=== PATIENT | male | born 1935 | race American Indian/Alaskan Native ===

== ENCOUNTER 2016-07-24 12:54 | Emergency (ER) | payer BC, MEDICARE ==
[2016-07-24 12:54] VITALS: BMI 25.0
[2016-07-24 14:14] LABS: BASO # 0.1 K/uL (0.0-0.2); EOS # 0.1 K/uL (0.0-0.7); EOS % 1.3 % (0.0-4.0); HEMATOCRIT 35.7 % (35.0-51.0); LYMPH # 1.8 K/uL (1.0-4.3); LYMPH % 23.6 % (20.0-40.0); MEAN CELL VOLUME 81.5 fL (80.0-94.0); MEAN CORPUSCULAR HEMOGLOBIN 26.5 pg (27.0-31.0); MEAN CORPUSCULAR HGB CONC 32.5 g/dL (33.0-37.0); MONO # 0.9 K/uL (0.0-0.8); RED CELL DISTRIBUTION WIDTH 17.8 % (11.5-14.5); WHITE BLOOD COUNT 7.7 K/uL (4.8-10.8)
[2016-07-24 15:08] LABS: RBC URINE 1 /hpf (0-3); URINE BILIRUBIN NEGATIVE (NEGATIVE); URINE BLOOD NEGATIVE (NEGATIVE); URINE COLOR Yellow (YELLOW); URINE GLUCOSE (UA) NORMAL (Normal); URINE KETONE NEGATIVE (NEGATIVE); URINE LEUKOCYTE ESTERASE NEG Leu/uL (Negative); URINE PROTEIN NEGATIVE (NEGATIVE); URINE UROBILINOGEN NORMAL mg/dL (0.2-1.0); WBC URINE 3 /hpf (0-5)
[2016-07-24 16:22] LABS: CHLORIDE 98 mmol/L (98-107); POTASSIUM 3.6 mmol/L (3.6-5.2); SODIUM 137 mmol/L (132-148)
[2016-07-24 16:24] LABS: ALB/GLOB RATIO 1.1 (1.0-2.1); AST/SGOT 28 U/L (17-59); BILIRUBIN,TOTAL 0.7 mg/dL (0.2-1.3); BLOOD UREA NITROGEN 23 mg/dL (9-20); CARBON DIOXIDE 26 mmol/L (22-30); GFR AFRICAN-AMERICAN > 60; TOTAL PROTEIN 6.5 g/dL (6.3-8.3)
[2016-07-24 16:25] LABS: ALKALINE PHOSPHATASE 62 U/L (38-126); ALT/SGPT 38 U/L (21-72); CALCIUM 8.7 mg/dl (8.6-10.4); GLUCOSE,RANDOM 82 mg/dL (75-110)
[2016-07-24] MEDS ORDERED: Iohexol 240 (50 ml) PO ONE (16:26)
[2016-07-24] MEDS ORDERED: Iohexol 240 (50 ml) ONE (16:28)
[2016-07-24] MEDS ORDERED: Iodixanol 320 MG/ML 100 ML BOTTLE IV ONE (17:41)
--- NOTE | 2016-07-24 18:37 | CT ---
PROCEDURE: CT Chest, Abdomen and Pelvis with intravenous contrast HISTORY: weight loss abd pain COMPARISON: CT abdomen/ pelvis 06/03/2016 TECHNIQUE: IV dose administered: 100 mL Visipaque 320 Radiation dose: Total exam DLP = 740.09 mGy-cm. FINDINGS: CT CHEST WITH CONTRAST: LUNGS: Clear. No nodule, mass or consolidation. MEDIASTINUM: Unremarkable. Normal caliber aorta and pulmonary arterial trunk. No aortic dissection. Normal size heart. LYMPH NODES: Unremarkable. PLEURA: Unremarkable. No pneumothorax. No pleural fluid. BONES: Unremarkable. OTHER FINDINGS: None. CT ABDOMEN AND PELVIS: LIVER: Unremarkable. No gross lesion or ductal dilatation. GALLBLADDER AND BILE DUCTS: Sludge noted. No evidence of calcified gallstones. No mural thickening. PANCREAS: Multiple fluid density pancreatic masses, likely cystic. In the pancreatic head, there are masses measuring 1.4 cm, 9 mm, a 2nd 9 mm mass, a bilobed mass measuring 1.0 x 1.9 cm. In the mid pancreatic body there are 2 fluid density masses will measuring 1.5 cm and 1.7 cm respectively. Distal to 1.7 cm mass there is pancreatic ductal dilatation of the distal body and tail. There is a more distal fluid density mass measuring 9 mm in the distal body/ tail junction. There is no proximal ductal dilatation. There is no peripancreatic fluid or infiltration. SPLEEN: Unremarkable. ADRENALS: Bilateral adrenal hypertrophy. KIDNEYS AND URETERS: Atrophic right kidney. 12 mm high attenuation exophytic mass in upper pole of right kidney, possibly hyperdense cyst. Recommend correlation with ultrasound. Low-density upper pole cyst, 10 mm. Exophytic 1.3 cm mass lower pole left kidney. This may also represent a hyperdense cyst. Again, correlation with ultrasound suggested. VASCULATURE: Unremarkable. No aortic aneurysm. BOWEL: Unremarkable. No obstruction. No gross mural thickening. APPENDIX: Normal appendix. PERITONEUM: No ascites. Incidentally noted fluid within the umbilicus. LYMPH NODES: Unremarkable. No enlarged lymph nodes. BLADDER: No mural thickening. REPRODUCTIVE: Enlarged prostate protruding into the bladder base. The prostate measures 6 cm transversely. BONES: No fracture. Grade 1 retrolisthesis at L2-3 with posterior osteophytes and central spinal canal stenosis. OTHER FINDINGS: None. IMPRESSION: Multiple fluid density pancreatic masses. Most likely these represent an IPMN's. There is mild dilatation of the pancreatic duct in the distal pancreatic body and tail. No evidence of pancreatitis. Bilateral high attenuation exophytic renal masses, possibly hyperdense cysts. Recommend correlation with renal ultrasound. Atrophic right kidney. Enlarged prostate. 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 No significant findings in the chest.
[2016-07-24 18:41] VITALS: PULSE 71; RESP 20; TEMP 99; O2SAT 97
[2016-07-24 19:01] VITALS: BP 165/100
--- NOTE | 2016-07-24 20:24 | C.PDOC ---
History Of Present Illness Patient presents to the emergency room with complaints of a poor appetite and weight loss for a few months. Patient notes occasional difficulty swallowing. Patient was seen by PMD and was in the ER earlier this month. Patient was referred to a GI and hasn't had any tests completed yet. Patient was told by his PMD to come to the ER for further evaluation. Patient denies any abdominal pain, chest pain, shortness of breath, fever, nausea, vomiting, diarrhea, or any other complaints. Time Seen by Provider: 07/24/16 13:46 Chief Complaint (Nursing): GI Problem History Per: Patient History/Exam Limitations: no limitations Onset/Duration Of Symptoms: Other (Few months) Current Symptoms Are (Timing): Still Present Context: Food Severity: Mild Radiation Of Pain To:: None Quality Of Discomfort: denies: "Pain" Associated Symptoms: Loss Of Appetite. denies: Fever, Nausea, Vomiting, Diarrhea Exacerbating Factors: None Alleviating Factors: None Recent travel outside of the [place]: No Past Medical History Reviewed: Historical Data, Nursing Documentation, Vital Signs Vital Signs: Last Vital Signs Temp 99.0 F 07/24/16 18:41 Pulse 71 07/24/16 18:41 Resp 20 07/24/16 18:41 BP 165/100 H 07/24/16 19:00 Pulse Ox 97 07/24/16 23:02 - Medical History PMH: Arthritis, HTN Denies: HIV, Chronic Kidney Disease, Seizures, Sexually Transmitted Disease Family History: States: Unknown Family Hx - Social History Hx Alcohol Use: No Hx Substance Use: No - Immunization History Hx Tetanus Toxoid Vaccination: No Hx Influenza Vaccination: No Hx Pneumococcal Vaccination: No Review Of Systems Constitutional: Positive for: Weight loss. Negative for: Fever ENT: Positive for: Other (Occasional difficulty swallowing) Cardiovascular: Negative for: Chest Pain Respiratory: Negative for: Shortness of Breath Gastrointestinal: Positive for: Other (Decreased appetite). Negative for: Nausea, Vomiting, Abdominal Pain, Diarrhea Physical Exam - Physical Exam Appears: Non-toxic Skin: Warm, Dry Head: Atraumatic, Normacephalic Throat: No Erythema, No Exudate Neck: Normal ROM, Supple Cardiovascular: Rhythm Regular Respiratory: Normal Breath Sounds, No Rales, No Rhonchi, No Wheezing Gastrointestinal/Abdominal: Soft, No Tenderness, No Guarding, No Rebound Extremity: Normal ROM, No Tenderness Neurological/Psych: Oriented x3, Normal Speech ED Course And Treatment - Laboratory Results Result Diagrams: 07/24/16 14:10 07/24/16 16:03 O2 Sat by Pulse Oximetry: 97 - CT Scan/US Chest CT Other Rad Studies (CT/US): Read By Radiologist, Radiology Report Reviewed CT/US Interpretation: Multiple fluid density pancreatic masses. Most likely these represent an IPMN's. There is mild dilatation of the pancreatic duct in the distal pancreatic body and tail. No evidence of pancreatitis. Bilateral high attenuation exophytic renal masses, possibly hyperdense cysts. Recommend correlation with renal ultrasound. Atrophic right kidney. Enlarged prostate. 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 No significant findings in the chest. Medical Decision Making Medical Decision Making: Plan: -- CT Chest -- Labs -- Omnipaque Progress Notes: Chest CT Impression: As read by Dr. Quinn Multiple fluid density pancreatic masses. Most likely these represent an IPMN' s. There is mild dilatation of the pancreatic duct in the distal pancreatic body and tail. No evidence of pancreatitis. Bilateral high attenuation exophytic renal masses, possibly hyperdense cysts. Recommend correlation with renal ultrasound. Atrophic right kidney. Enlarged prostate. 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 No significant findings in the chest. Case and results discussed with Dr. Davis, who agrees to follow up with patient in the office. Recommended Rx xanax for sleep Disposition - Disposition Referrals: Howard Davis MD [Staff Provider] - Disposition: HOME/ ROUTINE Disposition Time: 20:21 Condition: FAIR Additional Instructions: Follow up with dr Davis on wednesday at noon in the office Prescriptions: Alprazolam [Xanax] 1 tab PO HS PRN #7 tab PRN Reason: .sleep Forms: General Discharge Instructions - Clinical Impression Clinical Impression: Abdominal pain - Scribe Statement The provider has reviewed the documentation as recorded by the Scribcaitlin Pandey All medical record entries made by the Scribe were at my direction and personally dictated by me. I have reviewed the chart and agree that the record accurately reflects my personal performance of the history, physical exam, medical decision making, and the department course for this patient. I have also personally directed, reviewed, and agree with the discharge instructions and disposition.
== END 2016-07-24 20:00 | disposition home or self-care (01) ==
LOC: C.ER 12:54
DX: R10.9 Unspecified abdominal pain (principal); R63.4 Abnormal weight loss
CPT/HCPCS: 71260; 74177; 80053; 81001; 85025; 99284; Q9966; Q9967

== ENCOUNTER 2016-09-23 15:03 | Inpatient (IN) | payer MEDICARE ==
[2016-09-23 15:03] VITALS: BMI 25.0
[2016-09-23] MEDS ORDERED: Sodium Chloride 0.9% 500 ML IV ONE (15:22)
--- NOTE | 2016-09-23 15:32 | C.PDOC ---
History Of Present Illness 81 y/o male with PMHx of HTN and anxiety presents to ED with complaints of "feeling gassy" and abdominal pain since last night. Patient denies fever, chills, Shortness of breat N/V/D. No other complaints at this time. Time Seen by Provider: 09/23/16 15:17 Chief Complaint (Nursing): Abdominal Pain History Per: Patient History/Exam Limitations: no limitations Onset/Duration Of Symptoms: Days Current Symptoms Are (Timing): Still Present Past Medical History Reviewed: Historical Data, Nursing Documentation, Vital Signs Vital Signs: Last Vital Signs Temp 98.4 F 09/23/16 15:07 Pulse 79 09/23/16 17:03 Resp 16 09/23/16 17:03 BP 190/97 H 09/23/16 17:03 Pulse Ox 100 09/23/16 17:14 - Medical History PMH: Arthritis, HTN Family History: States: Unknown Family Hx - Social History Hx Alcohol Use: No Hx Substance Use: No - Immunization History Hx Tetanus Toxoid Vaccination: No Hx Influenza Vaccination: No Hx Pneumococcal Vaccination: No Review Of Systems Except As Marked, All Systems Reviewed And Found Negative. Constitutional: Negative for: Fever, Chills Respiratory: Negative for: Shortness of Breath Gastrointestinal: Positive for: Abdominal Pain. Negative for: Nausea, Vomiting , Diarrhea Neurological: Negative for: Headache, Dizziness Physical Exam - Physical Exam Appears: Non-toxic, No Acute Distress Skin: Normal Color, Warm Head: Atraumatic, Normacephalic Oral Mucosa: Moist Neck: Normal ROM Cardiovascular: Rhythm Regular Respiratory: Normal Breath Sounds, No Rales, No Rhonchi, No Wheezing Gastrointestinal/Abdominal: Soft, No Tenderness, No Guarding, No Rebound Extremity: Normal ROM Neurological/Psych: Oriented x3, Normal Speech, Normal Cognition Gait: Steady ED Course And Treatment - Laboratory Results Result Diagrams: 09/23/16 16:05 09/23/16 16:05 O2 Sat by Pulse Oximetry: 100 (Room air ) Pulse Ox Interpretation: Normal Medical Decision Making Medical Decision Making: r/o gastritis, pud, atypical cardiac- labs imaging pending 511: pt with elevated lipase, known pancreatic mass. case discussed with dr davis, requests admission, gi eval . ekg nsr [address] t wave changes Disposition - Disposition Disposition: HOSPITALIZED Disposition Time: 17:13 Condition: STABLE Additional Instructions: please follow up with your doctor. return to er with worsening symptoms or concerns. - Clinical Impression Clinical Impression: Pancreatitis - PA / RETORT UNLOADER / Resident Statement MD/DO has reviewed & agrees with the documentation as recorded. MD/DO has examined the patient and agrees with the treatment plan. - Scribe Statement The provider has reviewed the documentation as recorded by the Ana Barrios All medical record entries made by the Tuanibcaitlin were at my direction and personally dictated by me. I have reviewed the chart and agree that the record accurately reflects my personal performance of the history, physical exam, medical decision making, and the department course for this patient. I have also personally directed, reviewed, and agree with the discharge instructions and disposition. Decision To Admit - Pt Status Changed To: Hospital Disposition Of: Inpatient - Admit Certification Admit to Inpatient:: After my assessment, the patient will require hospitalization for at least two midnights. This is because of the severity of symptoms shown, intensity of services needed, and/or the medical risk in this patient being treated as an outpatient. - InPatient: Physician Admission Certification:: pt with pancreatitis, needs gi eval. - . Bed Request Type: Regular Admitting Physician: Howard Davis Patient Diagnosis: Pancreatitis
[2016-09-23] MEDS ORDERED: Sodium Chloride 0.9% 1,000 ML ONE (15:51)
[2016-09-23 16:12] LABS: BASO # 0.1 K/uL (0.0-0.2); BASO % 0.9 % (0.0-2.0); EOS % 0.4 % (0.0-4.0); HEMATOCRIT 34.4 % (35.0-51.0); LYMPH # 2.1 K/uL (1.0-4.3); LYMPH % 23.3 % (20.0-40.0); MEAN CORPUSCULAR HEMOGLOBIN 27.2 pg (27.0-31.0); MEAN CORPUSCULAR HGB CONC 32.4 g/dL (33.0-37.0); MEAN PLATELET VOLUME 7.8 fL (7.2-11.7); MONO # 0.7 K/uL (0.0-0.8); MONO % 7.9 % (0.0-10.0); WHITE BLOOD COUNT 8.8 K/uL (4.8-10.8)
[2016-09-23 16:22] LABS: CHLORIDE 101 mmol/L (98-107); POTASSIUM 4.6 mmol/L (3.6-5.2); SODIUM 137 mmol/L (132-148)
[2016-09-23 16:24] LABS: ALB/GLOB RATIO 1.3 (1.0-2.1); ALKALINE PHOSPHATASE 61 U/L (38-126); AST/SGOT 37 U/L (17-59); CARBON DIOXIDE 24 mmol/L (22-30); GFR AFRICAN-AMERICAN > 60; TOTAL PROTEIN 7.4 g/dL (6.3-8.3)
[2016-09-23 16:25] LABS: ALT/SGPT 20 U/L (21-72); BLOOD UREA NITROGEN 22 mg/dL (9-20); CALCIUM 8.6 mg/dl (8.6-10.4); GLUCOSE,RANDOM 85 mg/dL (75-110)
[2016-09-23 17:00] LABS: RBC URINE < 1 /hpf (0-3); URINE BILIRUBIN NEGATIVE (NEGATIVE); URINE BLOOD NEGATIVE (NEGATIVE); URINE COLOR Yellow (YELLOW); URINE GLUCOSE (UA) NORMAL (Normal); URINE KETONE NEGATIVE (NEGATIVE); URINE LEUKOCYTE ESTERASE NEG Leu/uL (Negative); URINE PROTEIN 1+ mg/dL (NEGATIVE); URINE UROBILINOGEN NORMAL mg/dL (0.2-1.0); WBC URINE 2 /hpf (0-5)
[2016-09-23] MEDS ORDERED: Aluminum Hydroxide/Magnesium Hydroxide Susp (30 mL) PO STA (17:06)
[2016-09-23] MEDS ORDERED: Aluminum Hydroxide/Magnesium Hydroxide Susp (30 mL) ONE (17:20)
[2016-09-23] MEDS ORDERED: Metoprolol Succinate 50 mg XL Tab PO STA (18:49)
[2016-09-23] MEDS: Metoprolol Succinate 12.5 mg XL PO STA ×2 (19:04→19:08)
[2016-09-24] MEDS ORDERED: Iohexol 240 (50 ml) ONE (08:44)
--- NOTE | 2016-09-24 16:01 | CT ---
CT abdomen and pelvis without/with IV contrast Indication: Pancreatitis, abdominal pain Technique: Contiguous axial images of the abdomen and pelvis CT utilizing pancreatic protocol. Coronal and Sagittal reformats generated and reviewed. This CT exam was performed using 1 or more of the falling dose reduction techniques: Automated exposure control, adjustment of the MAA and/or kV according to patient size, and/or use of iterative reconstruction technique. Contrast: Oral contrast was administered. 100 mL Visipaque IV. Radiation dose: Total exam DLP = 952.72 MGy-cm. Comparison: CT of the chest, abdomen, and pelvis without contrast performed 07/24/26 Findings: Visualized portions of the heart appear within normal limits of size. Trace pericardial effusion. Coronary artery calcifications. There is no visible consolidation, pleural effusion, or pneumothorax. Gallbladder sludge. Heterogeneous pancreatic parenchyma. Several low-density masses throughout the pancreas appear cystic. Largest masses reside within the pancreatic head/ uncinate process measuring maximally 2.4 x 1.7 cm (series 4, image 56). Pancreatic duct appears dilated. Atrophic right kidney. High attenuation exophytic right upper pole renal mass measuring approximately 12 mm, possibly hyperdense cyst. 10 mm low-density probable upper pole renal cyst. Exophytic high attenuation 1.3 cm left lower pole renal mass, possibly hyperdense cyst. Recommend further evaluation with ultrasound. Bilateral adrenal gland hypertrophy. Hypoattenuation of the liver compatible with hepatic steatosis. The spleen appears unremarkable. The stomach is nondistended. No evidence of small-bowel obstruction. Short region of narrowing/wall thickening involving the rectus sigmoid colon (series 9, image 122) ; correlate clinically for possibility of stricture, neoplasm, or infectious/inflammatory etiologies. There is no definite free air. Enlarged heterogeneous prostate gland measures approximately 5.7 x 6.0 cm. Thick-walled under distended urinary bladder. Small pelvic free fluid. Small fluid within small umbilical hernia. Osseous demineralization. Degenerative changes of the spine and pelvis. Severe joint space narrowing joint. Impression: Heterogeneous pancreatic parenchyma. Pancreatic duct appears dilated. Several low-density masses throughout the pancreas appear cystic. Largest masses reside within the pancreatic head/ uncinate process measuring maximally 2.4 x 1.7 cm. Differential diagnosis includes small cystic neoplasm versus sequela of prior pancreatitis (dilated side duct radicles or tiny pseudocyst). Short region of narrowing/wall thickening involving the rectus sigmoid colon (series 9, image 122) ; correlate clinically for possibility of stricture, neoplasm, or infectious/inflammatory etiologies. Atrophic right kidney. Bilateral renal high attenuation masses, possibly hyperdense cysts. Follow-up with renal ultrasound suggested. Renal ultrasound performed 08/14/16 reports bilateral cysts. Gallbladder sludge. Enlarged heterogeneous prostate gland. Recommend correlation with PSA. Under distended thick-walled urinary bladder. Correlate clinically including urinalysis in order to exclude possibility of cystitis. Hepatic steatosis. Small pelvic free fluid. Additional findings as above.
[2016-09-24 20:49] LABS: ALB/GLOB RATIO 1.3 (1.0-2.1); ALKALINE PHOSPHATASE 61 U/L (38-126); ALT/SGPT 21 U/L (21-72); AMYLASE 237 U/L (30-110); AST/SGOT 26 U/L (17-59); BILIRUBIN,TOTAL 0.9 mg/dL (0.2-1.3); BLOOD UREA NITROGEN 14 mg/dL (9-20); CALCIUM 8.3 mg/dl (8.6-10.4); CARBON DIOXIDE 26 mmol/L (22-30); CHLORIDE 100 mmol/L (98-107); GFR AFRICAN-AMERICAN > 60; GLUCOSE,RANDOM 108 mg/dL (75-110); POTASSIUM 3.6 mmol/L (3.6-5.2); SODIUM 135 mmol/L (132-148); TOTAL PROTEIN 6.7 g/dL (6.3-8.3)
[2016-09-24] MEDS: Dextrose 5%/0.9% NS 1,000 ML IV SCH (21:38)
[2016-09-24 22:23] LABS: HEMATOCRIT 34.5 % (35.0-51.0); MEAN CELL VOLUME 84.4 fL (80.0-94.0); MEAN CORPUSCULAR HEMOGLOBIN 27.1 pg (27.0-31.0); MEAN CORPUSCULAR HGB CONC 32.1 g/dL (33.0-37.0); MEAN PLATELET VOLUME 7.9 fL (7.2-11.7); WHITE BLOOD COUNT 7.4 K/uL (4.8-10.8)
[2016-09-25] MEDS: Dextrose 5%/0.9% NS 1,000 ML IV SCH ×4 (00:14→21:54)
--- NOTE | 2016-09-25 08:17 | HP ---
HISTORY OF PRESENT ILLNESS: This is an 81-year-old male with history of multiple medical problems, presented to Emergency Room with symptoms of abdominal discomfort. The patient was evaluated in the Emergency Room and he was found to have lipase above 1000, as well as CAT scan findings of multiple in the pancreas. The patient was known to Dr. Villa and GI consultation was requested, and patient was kept n.p.o. and admitted for further management. The patient also was started on IV fluid. ALLERGIES: No known allergies. HOME MEDICATIONS: Protonix 40 mg daily, metoprolol 50 mg daily, losartan 100 mg daily, alprazolam 0.25 mg daily as needed, allopurinol 100 mg daily. SOCIAL HISTORY: No history of smoking, ETOH, or substance abuse. FAMILY HISTORY: Noncontributory. PAST MEDICAL HISTORY: Hypertension, history of degenerative joint disease, gouty arthritis. PHYSICAL EXAMINATION: GENERAL: The patient is in bed comfortable, not in any cardiopulmonary distress. VITAL SIGNS: Blood pressure 165/97, temperature 98.1, respiratory rate 20, and pulse 81. HEENT: Pupils equal, reactive to light. Normal appearing mucosa of the conjunctivae, oropharyngeal, and nasal membrane mucosa. NECK: Supple, no JVD, no carotid bruit, no lymph node, no thyromegaly. CHEST AND LUNGS: Bilateral symmetrical expansion, good air exchange, no rales, no rhonchi. CARDIOVASCULAR: PMI not localized, S1, S2, no additional sounds. ABDOMEN: Normoactive bowel sounds, no tenderness, no organomegaly, no masses. EXTREMITIES: No cyanosis, no clubbing, no edema. CENTRAL NERVOUS SYSTEM: Alert, awake, oriented x 3. No neurological deficits could be appreciated. ASSESSMENT: 1. Acute pancreatitis. 2. Rule out pancreatic mass. 3. Hypertension. 4. Gouty arthritis. 5. Degenerative spine disease. PLAN: Continue IV fluid, follow up recommendations of gastroenterology, and resume patient's antihypertensive medications. Howard Davis MD cc: 167 TT: 09/25/2016 00:36:30 jose GALVAN
--- NOTE | 2016-09-25 08:26 | CP.PCM.PN ---
Subjective - Date & Time of Evaluation Date of Evaluation: 09/25/16 Time of Evaluation: 08:22 - Subjective Subjective: Patient reports "flux" coming up into the chest after eating. He denies having difficulty swallowing, abdominal pain, nausea and vomiting. Objective - Vital Signs/Intake and Output Vital Signs (last 24 hours): Temp Pulse Resp BP Pulse Ox 98.5 F 89 20 175/91 H 99 09/25/16 08:14 09/25/16 08:14 09/25/16 08:14 09/25/16 08:14 09/25/16 08:14 Intake and Output: 09/25/16 09/25/16 06:59 18:59 Intake Total 1999 Balance 1999 - Medications Medications: Current Medications Dextrose/Sodium Chloride (Dextrose 5%/0.9% Ns 1000 Ml) 1,000 mls @ 125 mls/hr IV .Q8H [facility] Last Admin: 09/25/16 06:37 Dose: Not Given Losartan Potassium (Cozaar) 100 mg PO DAILY [facility] Metoprolol Succinate (Toprol Xl) 50 mg PO DAILY [facility] Pantoprazole Sodium (Protonix Inj) 40 mg IVP DAILY [facility] - Labs Labs: 09/24/16 12:40 09/24/16 12:40 PT 11.7 SECONDS (9.7-12.2) 09/24/16 12:40 INR 1.0 09/24/16 12:40 APTT 35 SECONDS (21-34) H 09/24/16 12:40 - Constitutional Appears: No Acute Distress - Head Exam Head Exam: ATRAUMATIC, NORMOCEPHALIC - Eye Exam Eye Exam: EOMI, PERRL - Neck Exam Neck Exam: absent: Lymphadenopathy, Thyromegaly - Respiratory Exam Respiratory Exam: NORMAL BREATHING PATTERN. absent: Rales, Rhonchi, Wheezes - Cardiovascular Exam Cardiovascular Exam: REGULAR RHYTHM, +S1, +S2. absent: Gallop, Rubs, Murmur - GI/Abdominal Exam GI & Abdominal Exam: Soft, Normal Bowel Sounds. absent: Tenderness, Mass, Organomegaly - Rectal Exam Rectal Exam: Deferred - Extremities Exam Extremities Exam: absent: Calf Tenderness, Pedal Edema Assessment and Plan (1) Pancreatic pseudocyst/cyst Assessment & Plan: Patient denies having typical symptoms of pancreatitis, such as nausea, vomiting , abdominal pain. It is possible that the elevation in pancreatic enzymes is related to the cysts. Will schedule EGD and also refer patient for EUS when stable. Status: Acute
[2016-09-25 08:32] LABS: HEMATOCRIT 34.9 % (35.0-51.0); MEAN CELL VOLUME 84.6 fL (80.0-94.0); MEAN CORPUSCULAR HEMOGLOBIN 26.9 pg (27.0-31.0); MEAN CORPUSCULAR HGB CONC 31.8 g/dL (33.0-37.0); MEAN PLATELET VOLUME 8.4 fL (7.2-11.7); RED CELL DISTRIBUTION WIDTH 15.8 % (11.5-14.5); WHITE BLOOD COUNT 8.1 K/uL (4.8-10.8)
[2016-09-25 09:03] LABS: CHLORIDE 100 mmol/L (98-107); POTASSIUM 3.4 mmol/L (3.6-5.2); SODIUM 135 mmol/L (132-148)
[2016-09-25 09:04] LABS: CHLORIDE 100 mmol/L (98-107); SODIUM 135 mmol/L (132-148)
[2016-09-25 09:05] LABS: ALB/GLOB RATIO 1.3 (1.0-2.1); AMYLASE 208 U/L (30-110); BILIRUBIN,TOTAL 0.7 mg/dL (0.2-1.3); CARBON DIOXIDE 23 mmol/L (22-30); GFR AFRICAN-AMERICAN > 60; POTASSIUM 3.3 mmol/L (3.6-5.2); TOTAL PROTEIN 6.8 g/dL (6.3-8.3)
[2016-09-25 09:06] LABS: ALKALINE PHOSPHATASE 63 U/L (38-126); ALT/SGPT 24 U/L (21-72); AST/SGOT 31 U/L (17-59); BLOOD UREA NITROGEN 8 mg/dL (9-20); CALCIUM 8.5 mg/dl (8.6-10.4); GLUCOSE,RANDOM 115 mg/dL (75-110)
[2016-09-25 09:07] LABS: ALB/GLOB RATIO 1.3 (1.0-2.1); ALKALINE PHOSPHATASE 65 U/L (38-126); ALT/SGPT 22 U/L (21-72); AST/SGOT 32 U/L (17-59); BILIRUBIN,TOTAL 0.7 mg/dL (0.2-1.3); BLOOD UREA NITROGEN 8 mg/dL (9-20); CALCIUM 8.4 mg/dl (8.6-10.4); CARBON DIOXIDE 23 mmol/L (22-30); GFR AFRICAN-AMERICAN > 60; GLUCOSE,RANDOM 114 mg/dL (75-110); TOTAL PROTEIN 6.8 g/dL (6.3-8.3)
[2016-09-25] MEDS: Metoprolol Succinate 50 mg XL Tab PO SCH (09:25)
[2016-09-25 09:26] LABS: HEMATOCRIT 34.9 % (35.0-51.0); MEAN CELL VOLUME 84.9 fL (80.0-94.0); MEAN CORPUSCULAR HEMOGLOBIN 27.1 pg (27.0-31.0); MEAN CORPUSCULAR HGB CONC 31.9 g/dL (33.0-37.0); MEAN PLATELET VOLUME 8.1 fL (7.2-11.7); RED CELL DISTRIBUTION WIDTH 16.2 % (11.5-14.5); WHITE BLOOD COUNT 8.1 K/uL (4.8-10.8)
[2016-09-26] MEDS: Dextrose 5%/0.9% NS 1,000 ML IV SCH ×2 (06:49→13:25)
[2016-09-26] MEDS ORDERED: Lactated Ringer's 1,000 ML IV ONE (08:13)
[2016-09-26] MEDS ORDERED: Propofol 10 mg/ml Inj (20 ML) ONE (08:21)
[2016-09-26] MEDS ORDERED: Lidocaine Hydrochloride 10 ML INJ ONE (08:33)
--- NOTE | 2016-09-26 08:36 | PCM.SURG1 ---
Surgeon's Initial Post Op Note - Surgeon's Notes Surgeon: Cabrera Villa Economic Forecaster: none Type of Anesthesia: IV Sedation Anesthesia Administered By: Dr Rosas Pre-Operative Diagnosis: Dysphagia, GERD Operative Findings: No esophageal varices; EG junction at 40 cm; no hiatal hernia; diffuse, patchy erythema involving the entire stomach; prominent submucosal veins in the gastric fundus; normal duodenum Post-Operative Diagnosis: Gastritis Operation Performed: EGD with biopsy Specimen/Specimens Removed: Biopsy antrum, body, EG at 40 cm, distal esophagus Estimated Blood Loss: EBL {In ML}: 1 Date of Surgery/Procedure: 09/26/16 Time of Surgery/Procedure: 08:36
[2016-09-26] MEDS: Metoprolol Succinate 50 mg XL Tab PO SCH ×2 (09:41→09:48)
--- NOTE | 2016-09-26 11:01 | CP.PCM.CON ---
<Cem Santana - Last Filed: 09/26/16 10:55> History of Present Illness - History of Present Illness History of Present Illness: PGY4 GI Fellow Consult Note Patient is an 81yo male with PMHx significant for HTN, osteoarthritis and gout who presented to the ED with abdominal pain. Overall, the patient is a fairly poor historian. He states that he came to the ED due to burning, epigastric abdominal pain radiating to his chest and believed it to be related to reflux. He has no other complaints at this time and is s/p EGD with Dr Villa. Our service was consulted as the patient is known to have multiple pancreatic cysts and his care team is seeking EUS evaluation. Dating back to February of 2016, he has CT scans of the abdomen which reveal pancreatic cysts which have both grown in size and number since then. Currently, CT reveals several low-density masses throughout with the largest in the head/uncinate process measuring 2.4x1.7cm. The PD appears dilated. An MRCP is pending. He has never had EUS or biopsy of these lesions to get a definitive diagnosis. Currently, he is asymptomatic and stating he does not wish to have any further testing. No family is present at the time of examination and number listed on chart for next of kin and a disconnected telephone number. PMHx: See HPI PSHx: Denies FHx: Discussed with patient and denies any significant family history Social: Denies tobacco, EtOH or illicit drug use Endo: EGD today which revealed gastritis - biopsies pending Review of Systems - Constitutional Constitutional: absent: Anorexia, Chills, Fatigue, Fever - EENT Eyes: absent: Change in Vision Nose/Mouth/Throat: absent: Sore Throat - Cardiovascular Cardiovascular: absent: Chest Pain, Diaphoresis, Dyspnea - Respiratory Respiratory: absent: Cough, Dyspnea, Excessive Mucous Production - Gastrointestinal Gastrointestinal: Dyspepsia, Heartburn. absent: Abdominal Pain, Constipation, Cramping, Diarrhea, Dysphagia, Hematemesis, Hematochezia, Melena, Nausea, Vomiting - Genitourinary Genitourinary: absent: Dysuria, Urinary Frequency, Urinary Urgency - Musculoskeletal Musculoskeletal: absent: Back Pain, Neck Pain - Integumentary Integumentary: absent: New Lesions, Rash - Neurological Neurological: absent: Dizziness, Numbness, Focal Weakness - Psychiatric Psychiatric: absent: Anxiety, Depression - Endocrine Endocrine: absent: Polydipsia, Polyphagia, Polyuria - Hematologic/Lymphatic Hematologic: absent: Easy Bleeding, Easy Bruising, Lymphadenopathy Past Patient History - Infectious Disease Hx of Infectious Diseases: None - Past Medical History & Family History Past Medical History?: Yes - Past Social History Smoking Status: Never Smoked - CARDIAC Hx Hypertension: Yes - PULMONARY Hx Tuberculosis: No - NEUROLOGICAL Hx Seizures: No - HEENT Hx HEENT Problems: No - RENAL Hx Chronic Kidney Disease: No - ENDOCRINE/METABOLIC Hx Endocrine Disorders: No - HEMATOLOGICAL/ONCOLOGICAL Hx Human Immunodeficiency Virus (HIV): No - INTEGUMENTARY Hx Dermatological Problems: No - MUSCULOSKELETAL/RHEUMATOLOGICAL Hx Arthritis: Yes Hx Falls: No - GASTROINTESTINAL Hx Gastrointestinal Disorders: No - GENITOURINARY/GYNECOLOGICAL Hx Sexually Transmitted Disorders: No - PSYCHIATRIC Hx Substance Use: No - SURGICAL HISTORY Hx Surgeries: Yes Other/Comment: cystoscopy. - ANESTHESIA Hx Anesthesia: Yes Hx Anesthesia Reactions: No Meds Allergies/Adverse Reactions: Allergies Allergy/AdvReac Type Severity Reaction Status Date / Time No Known Allergies Allergy Verified 07/24/16 12:58 - Medications Medications: Current Medications Dextrose/Sodium Chloride (Dextrose 5%/0.9% Ns 1000 Ml) 1,000 mls @ 125 mls/hr IV [facility] Last Admin: 09/26/16 06:49 Dose: Not Given Losartan Potassium (Cozaar) 100 mg PO DAILY [facility] Last Admin: 09/26/16 09:40 Dose: 100 mg Metoprolol Succinate (Toprol Xl) 50 mg PO DAILY [facility] Last Admin: 09/26/16 09:48 Dose: Not Given Pantoprazole Sodium (Protonix Inj) 40 mg IVP DAILY [facility] Last Admin: 09/26/16 09:47 Dose: Not Given Physical Exam - Constitutional Appears: Non-toxic, No Acute Distress - Eye Exam Eye Exam: EOMI, PERRL - ENT Exam ENT Exam: Mucous Membranes Moist - Respiratory Exam Respiratory Exam: Clear to Auscultation Bilateral. absent: Rales, Rhonchi, Wheezes - Cardiovascular Exam Cardiovascular Exam: RRR, +S1, +S2 - GI/Abdominal Exam GI & Abdominal Exam: Normal Bowel Sounds, Soft. absent: Distended, Firm, Guarding, Organomegaly, Rigid, Tenderness - Extremities Exam Extremities exam: Positive for: normal inspection - Neurological Exam Neurological exam: Alert, Oriented x3 - Psychiatric Exam Psychiatric exam: Normal Affect, Normal Mood - Skin Skin Exam: Dry, Warm Results - Vital Signs Recent Vital Signs: Last Vital Signs Temp 97 F L 09/26/16 09:10 Pulse 68 09/26/16 09:10 Resp 10 L 09/26/16 09:10 BP 193/78 H 09/26/16 09:10 Pulse Ox 100 09/26/16 09:10 - Labs Result Diagrams: 09/25/16 08:18 09/25/16 08:18 Assessment & Plan - Assessment and Plan (Free Text) Assessment: Patient is an 81yo male with PMHx significant for HTN, osteoarthritis and gout who presented to the ED with abdominal pain. Overall, the patient is a fairly poor historian. He states that he came to the ED due to burning, epigastric abdominal pain radiating to his chest and believed it to be related to reflux. He has no other complaints at this time and is s/p EGD with Dr Villa. Our service was consulted as the patient is known to have multiple pancreatic cysts and his care team is seeking EUS evaluation. -Pancreatic lesions noted on CT imaging -GERD Plan: -Patient refusing EUS at this time -Would like to attempt to discuss with patient's famiyl who are involved in patient's care, however there is no contact information available and next of kin on EMR is a disconnected telephone number -Will give patient Dr Chavez's office information for follow up as outpatient should he change his mind regarding proceeding with EUS to further characterize pancreatic lesions - Date & Time Date: 09/26/16 Time: 10:10 <Juan Carvajal - Last Filed: 09/26/16 13:29> Meds - Medications Medications: Current Medications Dextrose/Sodium Chloride (Dextrose 5%/0.9% Ns 1000 Ml) 1,000 mls @ 125 mls/hr IV .[facility] Last Admin: 09/26/16 06:49 Dose: Not Given Losartan Potassium (Cozaar) 100 mg PO DAILY [facility] Last Admin: 09/26/16 09:40 Dose: 100 mg Metoprolol Succinate (Toprol Xl) 50 mg PO DAILY [facility] Last Admin: 09/26/16 09:48 Dose: Not Given Pantoprazole Sodium (Protonix Inj) 40 mg IVP DAILY [facility] Last Admin: 09/26/16 09:47 Dose: Not Given Results - Vital Signs Recent Vital Signs: Last Vital Signs Temp 97 F L 09/26/16 09:10 Pulse 68 09/26/16 09:10 Resp 10 L 09/26/16 09:10 BP 193/78 H 09/26/16 09:10 Pulse Ox 100 09/26/16 09:10 - Labs Result Diagrams: 09/25/16 08:18 09/25/16 08:18 Attending/Attestation - Attestation I have personally seen and examined this patient.: Yes I have fully participated in the care of the patient.: Yes I have reviewed all pertinent clinical information: Yes Notes (Text): Patient seen and examined with GI fellow. Agree with note as documented above with the following additions/exceptions. This is an 81yo male with PMHx significant for HTN, osteoarthritis, and gout who presented with abdominal pain and elevated lipase. He has had imaging in the past and during present hospitalization showing cystic pancreatic lesions, largest measuring 2.4cm in pancreas head/uncinate process with associated pancreatic duct dilation. His LFTs/T bili are normal. We are consulted for possible EUS evaluation. He underwent EGD earlier today showing gastritis. He currently denies any complaints. We discussed possibility of EUS evaluation of pancreas lesions to r /o possible malignancy, however the patient adamantly refused. Will discuss further with patient's family members. EUS can be pursued electively on outpatient basis if they agree. Dr. Chavez's office information was provided. Discussed case with Dr. Villa. Please call with any further questions/ concerns. 09/26/16 13:25
[2016-09-26 16:56] VITALS: RESP 20
--- NOTE | 2016-09-27 08:30 | PN ---
DATE: 09/26/2016 The patient is seen today, 09/26/2016. He had endoscopy today that showed gastritis. The patient was started on diet and he was feeling slight distention. PHYSICAL EXAMINATION: VITAL SIGNS: Blood pressure 148/82, temperature 97.9, respiratory rate 20, and pulse 88. HEENT: Pupils equal, reactive to light. Normal-appearing mucosa of the conjunctivae, oropharyngeal and nasal membrane mucosa. NECK: Supple, no JVD, no carotid bruit, no lymph node, no thyromegaly. CHEST AND LUNGS: Bilateral symmetrical expansion, good air exchange, no rales, no rhonchi. CARDIOVASCULAR: PMI not localized. S1, S2. No additional sounds. ABDOMEN: Normoactive bowel sounds, no tenderness, no organomegaly, no masses. EXTREMITIES: No cyanosis, no clubbing, no edema. CENTRAL NERVOUS SYSTEM: Alert, awake, oriented x 2. No neurological deficits could be appreciated. ASSESSMENT: 1. Pancreatitis. 2. Multiple pancreatic cystic lesions, rule out underlying malignancy. 3. Hypertension. PLAN: Discussed with patient. Discussed patient's condition with Dr. Villa, who will arrange for patient to have endoscopic ultrasound with possible aspiration of pancreatic cyst. Advance diet as tolerated. Howard Davis MD cc: 167 TT: 09/27/2016 08:29:19 Confirmation # [id number] Dictation # [id number] en
--- NOTE | 2016-09-27 08:49 | CP.PCM.PN ---
Subjective - Date & Time of Evaluation Date of Evaluation: 09/27/16 Time of Evaluation: 08:46 - Subjective Subjective: Patient feels well. He denies having nausea, vomiting, abdominal pain. He has not had a bowel movement this morning. Objective - Vital Signs/Intake and Output Vital Signs (last 24 hours): Temp Pulse Resp BP Pulse Ox 98.4 F 91 H 20 148/90 99 09/27/16 08:27 09/27/16 08:27 09/27/16 08:27 09/27/16 08:27 09/27/16 08:27 Intake and Output: 09/27/16 09/27/16 06:59 18:59 Intake Total 300 120 Balance 300 120 - Medications Medications: Current Medications Losartan Potassium (Cozaar) 100 mg PO DAILY [facility] Last Admin: 09/26/16 09:40 Dose: 100 mg Metoprolol Succinate (Toprol Xl) 50 mg PO DAILY [facility] Last Admin: 09/26/16 09:48 Dose: Not Given Pantoprazole Sodium (Protonix Inj) 40 mg IVP DAILY [facility] Last Admin: 09/26/16 09:47 Dose: Not Given - Labs Labs: 09/25/16 08:18 09/25/16 08:18 PT 11.7 SECONDS (9.7-12.2) 09/24/16 12:40 INR 1.0 09/24/16 12:40 APTT 35 SECONDS (21-34) H 09/24/16 12:40 - Constitutional Appears: No Acute Distress - Head Exam Head Exam: ATRAUMATIC, NORMOCEPHALIC - Eye Exam Eye Exam: EOMI, PERRL - Neck Exam Neck Exam: absent: Lymphadenopathy, Thyromegaly - Respiratory Exam Respiratory Exam: NORMAL BREATHING PATTERN. absent: Rales, Rhonchi, Wheezes - Cardiovascular Exam Cardiovascular Exam: REGULAR RHYTHM, +S1, +S2. absent: Gallop, Rubs, Murmur - GI/Abdominal Exam GI & Abdominal Exam: Soft, Normal Bowel Sounds. absent: Tenderness, Mass, Organomegaly - Rectal Exam Rectal Exam: Deferred - Extremities Exam Extremities Exam: absent: Calf Tenderness, Pedal Edema, Tenderness Assessment and Plan (1) Pancreatic pseudocyst/cyst Assessment & Plan: Patient is currently asymptomatic. Dr. Chavez's team has been contacted, and EUS should be scheduled. This can be done as an outpatient. Status: Acute
[2016-09-27] MEDS: Metoprolol Succinate 50 mg XL Tab PO SCH (09:31)
--- NOTE | 2016-09-27 10:51 | CP.PCM.PN ---
Subjective - Date & Time of Evaluation Date of Evaluation: 09/27/16 Time of Evaluation: 10:44 - Subjective Subjective: Patient seen and examined. No acute events. He is tolerating diet without incident. No current abdominal pain, nausea or vomiting. No BM today. ROS otherwise negative in detail Objective - Vital Signs/Intake and Output Vital Signs (last 24 hours): Temp Pulse Resp BP Pulse Ox 98.4 F 91 H 20 148/90 99 09/27/16 08:27 09/27/16 08:27 09/27/16 08:27 09/27/16 08:27 09/27/16 08:27 Intake and Output: 09/27/16 09/27/16 06:59 18:59 Intake Total 300 120 Balance 300 120 - Medications Medications: Current Medications Losartan Potassium (Cozaar) 100 mg PO DAILY [facility] Last Admin: 09/27/16 09:32 Dose: 100 mg Metoprolol Succinate (Toprol Xl) 50 mg PO DAILY [facility] Last Admin: 09/27/16 09:31 Dose: 50 mg Pantoprazole Sodium (Protonix Inj) 40 mg IVP DAILY [facility] Last Admin: 09/27/16 09:32 Dose: 40 mg - Labs Labs: 09/25/16 08:18 09/25/16 08:18 PT 11.7 SECONDS (9.7-12.2) 09/24/16 12:40 INR 1.0 09/24/16 12:40 APTT 35 SECONDS (21-34) H 09/24/16 12:40 - Constitutional Appears: No Acute Distress - Eye Exam Eye Exam: absent: Scleral icterus - ENT Exam ENT Exam: Mucous Membranes Moist - Respiratory Exam Respiratory Exam: Clear to Ausculation Bilateral - Cardiovascular Exam Cardiovascular Exam: +S1, +S2 - GI/Abdominal Exam Additional comments: abdomen soft, non tender to palpation, no rebound or guarding, bowel sounds present, no palpable mass - Extremities Exam Extremities Exam: absent: Pedal Edema - Neurological Exam Neurological Exam: Alert, Oriented x3 - Skin Skin Exam: Dry Assessment and Plan - Assessment and Plan (Free Text) Assessment: This is an 81 year old male with h/o HTN, arthritis, gout who is admitted with abdominal pain. He has elevated amylase/lipase with imaging showing pancreatic cysts, largest measuring 2.4cm on pancreas protocol CT. Cysts were also identified on previous imaging studies, dating back to 02/2016. Plan: Continue supportive care Discussed again with patient, he is agreeable to EUS evaluation of pancreas cysts, which can be done electively If patient remains in hospital, we can tentatively plan for evaluation tomorrow at [place] [facility] as needed F/u official MRCP read
[2016-09-27 11:37] LABS: BASO % 0.5 % (0.0-2.0); EOS # 0.1 K/uL (0.0-0.7); EOS % 0.7 % (0.0-4.0); HEMATOCRIT 32.1 % (35.0-51.0); LYMPH # 1.5 K/uL (1.0-4.3); LYMPH % 17.9 % (20.0-40.0); MEAN CELL VOLUME 83.9 fL (80.0-94.0); MEAN CORPUSCULAR HEMOGLOBIN 27.1 pg (27.0-31.0); MEAN CORPUSCULAR HGB CONC 32.3 g/dL (33.0-37.0); MEAN PLATELET VOLUME 7.9 fL (7.2-11.7); MONO % 12.6 % (0.0-10.0); WHITE BLOOD COUNT 8.2 K/uL (4.8-10.8)
[2016-09-27 12:03] LABS: POTASSIUM 3.8 mmol/L (3.6-5.2)
[2016-09-27 12:05] LABS: ALB/GLOB RATIO 1.2 (1.0-2.1); BILIRUBIN,TOTAL 0.6 mg/dL (0.2-1.3); TOTAL PROTEIN 6.2 g/dL (6.3-8.3)
[2016-09-27 12:06] LABS: CALCIUM 8.3 mg/dl (8.6-10.4)
--- NOTE | 2016-09-27 15:33 | CARD ---
APPROVED REPORT EKG Measurement Heart [id number] <Conclusion> Normal sinus rhythm with sinus arrhythmia Normal ECG
[2016-09-28 06:18] LABS: BASO % 0.6 % (0.0-2.0); EOS # 0.1 K/uL (0.0-0.7); EOS % 0.7 % (0.0-4.0); HEMATOCRIT 33.2 % (35.0-51.0); INR 1.1; LYMPH # 2.2 K/uL (1.0-4.3); LYMPH % 26.3 % (20.0-40.0); MEAN CELL VOLUME 83.8 fL (80.0-94.0); MEAN CORPUSCULAR HEMOGLOBIN 27.1 pg (27.0-31.0); MEAN CORPUSCULAR HGB CONC 32.4 g/dL (33.0-37.0); MEAN PLATELET VOLUME 7.9 fL (7.2-11.7); MONO # 0.8 K/uL (0.0-0.8); RED CELL DISTRIBUTION WIDTH 16.1 % (11.5-14.5); WHITE BLOOD COUNT 8.5 K/uL (4.8-10.8)
[2016-09-28 06:34] LABS: POTASSIUM 4.1 mmol/L (3.6-5.2)
[2016-09-28 06:37] LABS: ALB/GLOB RATIO 1.3 (1.0-2.1); BILIRUBIN,TOTAL 0.7 mg/dL (0.2-1.3); CALCIUM 8.9 mg/dl (8.6-10.4); TOTAL PROTEIN 6.3 g/dL (6.3-8.3)
--- NOTE | 2016-09-28 07:16 | PN ---
DATE: 09/25/2016 SUBJECTIVE: The patient was seen on 09/25/2016. He still has some abdominal discomfort. OBJECTIVE: VITAL SIGNS: Blood pressure was 152/78, temperature 98.3, respiratory rate 20, and pulse 85. HEENT: Pupils equal, reactive to light. Normal-appearing mucosa of the conjunctivae, oropharyngeal and nasal membrane mucosa. NECK: Supple, no JVD, no carotid bruit, no lymph node, no thyromegaly. CHEST AND LUNGS: Bilateral symmetrical expansion, good air exchange, no rales, no rhonchi. CARDIOVASCULAR: PMI not localized. S1, S2. No additional sounds. ABDOMEN: Normoactive bowel sounds, no tenderness, slight tenderness in the epigastrium. EXTREMITIES: No cyanosis, no clubbing, no edema. CENTRAL NERVOUS SYSTEM: Alert, awake, oriented x 3. No neurological deficits could be appreciated. LABORATORY DATA: Blood work done on 09/25/2016 showed decrease of lipase to 665, potassium 3.4. ASSESSMENT: 1. Acute pancreatitis. 2. Multiple pancreatic cysts of uncertain nature. 3. Hypertension. PLAN: Discussed the patient's condition with Dr. Villa who recommended endoscopic ultrasound and a spiration of pancreatic cysts. Dr. Chavez was also consulted and will follow GI recommendations. Howard Davis MD cc: 167 TT: 09/26/2016 11:13:25 Confirmation # [id number] Dictation # [id number] marilee
[2016-09-28] MEDS: Metoprolol Succinate 50 mg XL Tab PO SCH (11:14)
--- NOTE | 2016-09-28 22:46 | PN ---
DATE: 09/28/2016 SUBJECTIVE: The patient is seen today 09/28/2016. He is not in cardiopulmonary distress. The patient was awaiting endoscopic ultrasound procedure. PHYSICAL EXAMINATION: VITAL SIGNS: Blood pressure 154/93, temperature 98.8, respiratory rate 20, and pulse 85. HEENT: Pupils equal, reactive to light. Normal-appearing mucosa of the conjunctivae, oropharyngeal and nasal membrane mucosa. NECK: Supple, no JVD, no carotid bruit, no lymph node, no thyromegaly. CHEST AND LUNGS: Bilateral symmetrical expansion, good air exchange, no rales, no rhonchi. CARDIOVASCULAR: PMI not localized. S1, S2. No additional sounds. ABDOMEN: Normoactive bowel sounds, no tenderness, no organomegaly, no masses. EXTREMITIES: No cyanosis, no clubbing , no edema CENTRAL NERVOUS SYSTEM: No neurologic deficits could be appreciated. ASSESSMENT: 1. Pancreatitis. 2. Multiple pancreatic cystic lesions, rule out underlying malignancy. 3. Hypertension. PLAN: Continue current management and follow up GI recommendations. The patient is for endoscopic ultrasound and possible pancreatic pain management. Marjan Domingo Davis MD cc: 167 TT: 09/28/2016 22:45:33 Confirmation # [id number] Dictation # [id number] MTDD
--- NOTE | 2016-09-29 06:03 | CP.PCM.PN ---
<Yajaira Schofield - Last Filed: 09/29/16 08:26> Subjective - Date & Time of Evaluation Date of Evaluation: 09/29/16 Time of Evaluation: 06:00 - Subjective Subjective: Gastroenterology Fellow/PGY4 Progress Note Patient denies abdominal pain. Tolerating regular diet. Notes no bowel movement for two days. A 12-point review of systems negative except for as above. Objective - Vital Signs/Intake and Output Vital Signs (last 24 hours): Temp Pulse Resp BP Pulse Ox 98.3 F 87 20 164/90 H 100 09/29/16 00:00 09/29/16 00:00 09/29/16 00:00 09/29/16 00:00 09/29/16 00:00 - Medications Medications: Current Medications Losartan Potassium (Cozaar) 100 mg PO DAILY [facility] Last Admin: 09/28/16 11:14 Dose: 100 mg Metoprolol Succinate (Toprol Xl) 50 mg PO DAILY [facility] Last Admin: 09/28/16 11:14 Dose: 50 mg Pantoprazole Sodium (Protonix Inj) 40 mg IVP DAILY [facility] Last Admin: 09/28/16 11:14 Dose: 40 mg - Labs Labs: 09/28/16 06:01 09/28/16 06:01 PT 11.9 SECONDS (9.7-12.2) 09/28/16 06:01 INR 1.1 09/28/16 06:01 APTT 35 SECONDS (21-34) H 09/24/16 12:40 - Constitutional Appears: Non-toxic, No Acute Distress - Head Exam Head Exam: ATRAUMATIC, NORMOCEPHALIC - Eye Exam Eye Exam: EOMI, PERRL Pupil Exam: PERRL. absent: Miosis, Mydriatic - ENT Exam ENT Exam: Mucous Membranes Moist, Normal Oropharynx - Neck Exam Neck Exam: Full ROM, Normal Inspection - Respiratory Exam Respiratory Exam: Clear to Ausculation Bilateral. absent: Rales, Rhonchi, Wheezes - Cardiovascular Exam Cardiovascular Exam: RRR, +S1, +S2. absent: Gallop, Rubs - GI/Abdominal Exam GI & Abdominal Exam: Soft, Normal Bowel Sounds. absent: Distended, Firm, Guarding, Rigid, Tenderness, Organomegaly, Rebound - Extremities Exam Extremities Exam: Full ROM. absent: Pedal Edema - Neurological Exam Neurological Exam: Alert, Awake - Psychiatric Exam Psychiatric exam: Normal Affect, Normal Mood - Skin Skin Exam: Dry, Intact, Normal Color, Warm Assessment and Plan - Assessment and Plan (Free Text) Assessment: 81 year old male with history of Hypertension, Gout, and arthritis presenting with abdominal pain. Active treatment of pancreativc cystic lesion POD1 (09/29) EUS with FNA and POD 3 (09/26) EGD with gastritis and biopsy of lower third of esophagus. CT Abdomen showed max pancreatic head and uncinate process [id number] lesion previously noted on prior imaging dating back to 02/2016, dilated pancreatic duct, and narrowing versus thickening of rectosigmoid colon . No prior colonoscopy. Plan: >EUS- multicystic septated [id number] pancreatic head and uncinate process lesion with small internal debris. no solid mass, FNA- 3mL -3 smaller pancreatic head and neck cystic lesions, gallbladder sludge, normal CBD -prominent branching and tortuous, ectatic pancreatic duct, measured 2mm in head, 1.5mm in body >following up FNA results >Dr. Villa managing- EGD pathology pending >continue PPI daily >continue regular diet >will follow follow clinical course <Jonatan Freire - Last Filed: 09/29/16 08:55> Objective - Vital Signs/Intake and Output Vital Signs (last 24 hours): Temp Pulse Resp BP Pulse Ox 98.2 F 107 H 20 156/99 H 99 09/29/16 08:34 09/29/16 08:34 09/29/16 08:34 09/29/16 08:34 09/29/16 08:34 Intake and Output: 09/29/16 09/29/16 06:59 18:59 Intake Total 240 Balance 240 - Medications Medications: Current Medications Losartan Potassium (Cozaar) 100 mg PO DAILY [facility] Last Admin: 09/28/16 11:14 Dose: 100 mg Metoprolol Succinate (Toprol Xl) 50 mg PO DAILY [facility] Last Admin: 09/28/16 11:14 Dose: 50 mg Moxifloxacin HCl (Avelox) 400 mg PO DAILY [facility] Pantoprazole Sodium (Protonix Inj) 40 mg IVP DAILY [facility] Last Admin: 09/28/16 11:14 Dose: 40 mg - Labs Labs: 09/29/16 08:14 09/29/16 08:14 PT 11.9 SECONDS (9.7-12.2) 09/28/16 06:01 INR 1.1 09/28/16 06:01 APTT 35 SECONDS (21-34) H 09/24/16 12:40 Attending/Attestation - Attestation I have personally seen and examined this patient.: Yes I have fully participated in the care of the patient.: Yes I have reviewed all pertinent clinical information, including history, physical exam and plan: Yes Notes (Text): 09/29/16 08:51 I have seen and examined patient with GI fellow. No acute events overnight, patient is seen ambulating in hallway, appears quite comfortable. He denies abdominal pain, nausea, vomiting, fever/chills. He completed his breakfast tray in entirety and is asking to go home. Review of vitals from today shows elevated BP. HTN Gout Abdominal pain, pancreatic cystic lesion s/p EUS and FNA yesterday. Gastric ulcer noted on EGD. Abnormal CT imaging showing thickening/narrowing of sigmoid colon - Diet as tolerated - LFTs stable, continue to monitor - Continue with PPI therapy - Awaiting results of EGD biopsies and FNA results from cystic lesion - From GI standpoint, ok to discharge home with subsequent outpatient follow up with Dr. Chavez for EUS results. Patient would also benefit from colonoscopy given abnormal CT imaging results. Office contact information provided to patient. - Will sign off case, further management as per primary GI team.
[2016-09-29 08:21] LABS: HEMATOCRIT 35.3 % (35.0-51.0); MEAN CORPUSCULAR HEMOGLOBIN 27.6 pg (27.0-31.0); MEAN CORPUSCULAR HGB CONC 32.9 g/dL (33.0-37.0); MEAN PLATELET VOLUME 8.1 fL (7.2-11.7); RED CELL DISTRIBUTION WIDTH 16.2 % (11.5-14.5); WHITE BLOOD COUNT 8.9 K/uL (4.8-10.8)
[2016-09-29 08:36] VITALS: BP 156/99; PULSE 107; TEMP 98.2; O2SAT 99
[2016-09-29 08:48] LABS: CHLORIDE 99 mmol/L (98-107); POTASSIUM 4.2 mmol/L (3.6-5.2); SODIUM 137 mmol/L (132-148)
[2016-09-29 08:50] LABS: BILIRUBIN,TOTAL 0.7 mg/dL (0.2-1.3); CARBON DIOXIDE 22 mmol/L (22-30); GFR AFRICAN-AMERICAN > 60
[2016-09-29 08:51] LABS: ALB/GLOB RATIO 1.2 (1.0-2.1); ALKALINE PHOSPHATASE 65 U/L (38-126); ALT/SGPT 16 U/L (21-72); AST/SGOT 30 U/L (17-59); BLOOD UREA NITROGEN 19 mg/dL (9-20); CALCIUM 8.8 mg/dl (8.6-10.4); GLUCOSE,RANDOM 95 mg/dL (75-110); TOTAL PROTEIN 7.2 g/dL (6.3-8.3)
[2016-09-29] MEDS: Metoprolol Succinate 50 mg XL Tab PO SCH (09:47)
--- NOTE | 2016-09-29 16:48 | CP.PCM.PN ---
Subjective - Date & Time of Evaluation Date of Evaluation: 09/29/16 Time of Evaluation: 11:00 - Subjective Subjective: Alert, awake, no distress Objective - Vital Signs/Intake and Output Vital Signs (last 24 hours): Temp Pulse Resp BP Pulse Ox 98.2 F 107 H 20 156/99 H 99 09/29/16 08:34 09/29/16 08:34 09/29/16 08:34 09/29/16 08:34 09/29/16 08:34 Intake and Output: 09/29/16 09/29/16 06:59 18:59 Intake Total 740 Balance 740 - Labs Labs: 09/29/16 08:14 09/29/16 08:14 PT 11.9 SECONDS (9.7-12.2) 09/28/16 06:01 INR 1.1 09/28/16 06:01 APTT 35 SECONDS (21-34) H 09/24/16 12:40 Assessment and Plan - Assessment and Plan (Free Text) Assessment: Patient is tolerating diet. Denies abdominal pain or vomiting. Patient is discharged home as per DR Davis, to be followed up by GI DR Chavez in the office. Also to f/u by his PMD in 1 week.
--- NOTE | 2016-10-01 03:14 | DS ---
REASON FOR ADMISSION: This is an 81-year-old -[place] male with history of multiple medical problems, was admitted for this abdominal discomfort , found to have pancreatitis with increased lipase. COURSE OF HOSPITALIZATION: The patient was admitted to medical floor and he was started on IV fluid. The patient had multiple pancreatic lesions. The patient states discussing with gastroenterology, Dr. Villa. The patient underwent endoscopic ultrasound procedure with pancreatic head aspiration. The patient tolerated the procedure well and he was transferred back from [place] to [facility] and the patient was able to tolerate diet. The patient was seen by gastroenterology on the day of admission and he was discharged in stable condition to follow up with Dr. Daivs, as well as with , who did the endoscopic ultrasound. FINAL DIAGNOSES: 1. Multiple pancreatic cysts. 2. Pancreatitis. 3. Hypertension. [facility] S Ryan RODGERS cc: 167 TT: 10/01/2016 03:14:41 maria ines GALVAN
[2016-10-06 13:06] LABS: FECAL PANCREATIC ELASTASE-1 >500 mcg/g
== END 2016-09-29 12:29 | disposition home or self-care (01) | DRG 438 ==
LOC: C.ER 15:03 → C.3T 18:13
PROVIDERS: ADMIT Internal Medicine; ATTEND Internal Medicine
PROC: 0DB68ZX Excision of Stomach, Via Natural or Artificial Opening Endoscopic, Diagnostic (ICD-10-PCS; 2016-09-26)
PROC: 0DB28ZX Excision of Middle Esophagus, Via Natural or Artificial Opening Endoscopic, Diagnostic (ICD-10-PCS; 2016-09-26)
PROC: 0DB38ZX Excision of Lower Esophagus, Via Natural or Artificial Opening Endoscopic, Diagnostic (ICD-10-PCS; principal; 2016-09-26 08:00)
PROC: 0DJ08ZZ Inspection of Upper Intestinal Tract, Via Natural or Artificial Opening Endoscopic (ICD-10-PCS; 2016-09-28)
PROC: BD47ZZZ Ultrasonography of Gastrointestinal Tract (ICD-10-PCS; 2016-09-28)
PROC: 0F9G3ZX Drainage of Pancreas, Percutaneous Approach, Diagnostic (ICD-10-PCS; 2016-09-28)
DX: K86.3 Pseudocyst of pancreas (principal); K85.90 Acute pancreatitis without necrosis or infection, unspecified; K25.9 Gastric ulcer, unspecified as acute or chronic, without hemorrhage or perforation; I10 Essential (primary) hypertension; M10.00 Idiopathic gout, unspecified site; M19.90 Unspecified osteoarthritis, unspecified site; M51.37 Other intervertebral disc degeneration, lumbosacral region; K21.9 Gastro-esophageal reflux disease without esophagitis; K86.9 Disease of pancreas, unspecified; K29.70 Gastritis, unspecified, without bleeding; B96.81 Helicobacter pylori [H. pylori] as the cause of diseases classified elsewhere; K82.8 Other specified diseases of gallbladder

== ENCOUNTER 2016-12-14 08:12 | Observation (INO) | payer MEDICARE ==
[2016-12-14 08:12] VITALS: BMI 20.9
[2016-12-15 08:55] VITALS: BP 150/81; PULSE 65; RESP 20; TEMP 98.4; O2SAT 100
== END 2016-12-15 14:52 | disposition home or self-care (01) ==
LOC: C.ER 08:12 → C.9E 12:16 → C.5T 14:25
PROVIDERS: ADMIT Internal Medicine; ATTEND Internal Medicine
DX: R62.7 Adult failure to thrive (principal); E86.0 Dehydration; I10 Essential (primary) hypertension; K59.00 Constipation, unspecified; K86.2 Cyst of pancreas; M10.9 Gout, unspecified
CPT/HCPCS: 74177; 80053; 81001; 83690; 85025; 97116; 97162; 99283; G0378; G8978; G8979; J7040; Q9966; Q9967

== ENCOUNTER 2017-08-10 15:14 | Inpatient (IN) | payer MEDICARE ==
[2017-08-10 15:14] VITALS: BMI 20.9
[2017-08-10 17:28] LABS: BASO # 0.1 K/uL (0.0-0.2); BASO % 0.9 % (0.0-2.0); EOS % 0.7 % (0.0-4.0); HEMOGLOBIN 12.1 g/dL (12.0-18.0); LYMPH # 1.6 K/uL (1.0-4.3); LYMPH % 23.2 % (20.0-40.0); MEAN CORPUSCULAR HEMOGLOBIN 27.8 pg (27.0-31.0); MEAN CORPUSCULAR HGB CONC 32.3 g/dL (33.0-37.0); MEAN PLATELET VOLUME 7.9 fL (7.2-11.7); MONO # 0.5 K/uL (0.0-0.8); MONO % 7.9 % (0.0-10.0); NEUT # 4.6 K/uL (1.8-7.0); NEUT % 67.3 % (50.0-75.0); NRBC % 0.1 % (0.0-2.0); RBC 4.36 Mil/uL (4.40-5.90); RED CELL DISTRIBUTION WIDTH 15.5 % (11.5-14.5); WHITE BLOOD COUNT 6.9 K/uL (4.8-10.8)
--- NOTE | 2017-08-10 17:41 | C.PDOC ---
History Of Present Illness 82 y/o male presents to the ER complaining of left leg swelling which has been present for 1 week. Patient states that he saw Dr. Davis today and he told him to visit the ER. Patient notes that he has irregular heartbeat sometimes. Otherwise, patient denies palpitations, CP, and SOB at this time. Time Seen by Provider: 08/10/17 16:27 Chief Complaint (Nursing): Lower Extremity Problem/Injury History Per: Patient History/Exam Limitations: no limitations Onset/Duration Of Symptoms: Days Current Symptoms Are (Timing): Still Present Severity: Moderate Past Medical History Reviewed: Historical Data, Nursing Documentation, Vital Signs Vital Signs: Last Vital Signs Temp 98.0 F 08/10/17 15:32 Pulse 67 08/10/17 15:32 Resp 18 08/10/17 15:32 BP 132/83 08/10/17 15:32 Pulse Ox 100 08/10/17 17:46 - Medical History PMH: Arthritis, HTN Denies: Chronic Kidney Disease, Seizures, Sexually Transmitted Disease Surgical History: No Surg Hx - [facility] Procedures DRAINAGE OF PANCREAS, PERCUTANEOUS APPROACH, DIAGNOSTIC (09/23/16) EXCISION OF LOWER ESOPHAGUS, ENDO, DIAGN (09/23/16) EXCISION OF MIDDLE ESOPHAGUS, ENDO, DIAGN (09/23/16) EXCISION OF STOMACH, ENDO, DIAGN (09/23/16) INSPECTION OF UPPER INTESTINAL TRACT, ENDO (09/23/16) ULTRASONOGRAPHY OF GASTROINTESTINAL TRACT (09/23/16) Family History: States: No Known Family Hx - Social History Hx Alcohol Use: No Hx Substance Use: No - Immunization History Hx Tetanus Toxoid Vaccination: No Hx Influenza Vaccination: Yes Hx Pneumococcal Vaccination: Yes Review Of Systems Except As Marked, All Systems Reviewed And Found Negative. Constitutional: Negative for: Fever, Chills Cardiovascular: Negative for: Chest Pain, Palpitations Respiratory: Negative for: Cough, Shortness of Breath Skin: Positive for: Other (left leg swelling) Physical Exam - Physical Exam Appears: Non-toxic, No Acute Distress Skin: Normal Color, Warm Head: Atraumatic, Normacephalic Eye(s): bilateral: Normal Inspection Nose: Normal Oral Mucosa: Moist Neck: Supple Chest: Symmetrical Cardiovascular: Rhythm Irregular Respiratory: Normal Breath Sounds, No Rales, No Rhonchi, No Wheezing Extremity: Swelling (swelling to left leg), Other (left leg- no erythema , no open sores ) Neurological/Psych: Oriented x3, Normal Speech ED Course And Treatment - Laboratory Results Result Diagrams: 08/10/17 17:22 08/10/17 18:06 ECG Rhythm: Atrial Fibrillation Rate From EC O2 Sat by Pulse Oximetry: 100 (RA) Pulse Ox Interpretation: Normal Progress Note: Labs and CXR has been ordered. Vascular Lab is closed so D-Dimer has been ordered and elevated. EKG with new oncet a-fib. Lovenox Sq ordered. case was d/w patient's PMD who accepted patient to [facility] for an admission. Disposition - Disposition Disposition: HOSPITALIZED Disposition Time: 18:46 Condition: FAIR Forms: [employer] (Sinhala) - Clinical Impression Clinical Impression: Deep venous thrombosis of lower extremity, New onset a-fib - PA / CHILD SUPPORT SPECIALIST / Resident Statement MD/DO has reviewed & agrees with the documentation as recorded. - Scribe Statement The provider has reviewed the documentation as recorded by the Tuanibe Aquiles Almonteq Provider Attestation All medical record entries made by the Scribe were at my direction and personally dictated by me. I have reviewed the chart and agree that the record accurately reflects my personal performance of the history, physical exam, medical decision making, and the department course for this patient. I have also personally directed, reviewed, and agree with the discharge instructions and disposition. Decision To Admit - Pt Status Changed To: Hospital Disposition Of: Inpatient - Admit Certification Admit to Inpatient:: After my assessment, the patient will require hospitalization for at least two midnights. This is because of the severity of symptoms shown, intensity of services needed, and/or the medical risk in this patient being treated as an outpatient. - InPatient: Physician Admission Certification: I certify that this patient requires 2 or more midnights of care for the following reason:: Patient with new oncet a-fib and LLE DVT will need more than 2 days of hospitalization. - . Bed Request Type: Telemetry Admitting Physician: Howard Davis Patient Diagnosis: Deep venous thrombosis of lower extremity, New onset a-fib
--- NOTE | 2017-08-10 17:49 | RAD ---
PROCEDURE: CHEST RADIOGRAPH, 1 VIEW HISTORY: LLE swelling COMPARISON: 03/13/2016 FINDINGS: LUNGS: Clear. PLEURA: No pneumothorax or pleural fluid seen. CARDIOVASCULAR: Normal. OSSEOUS STRUCTURES: No significant abnormalities. VISUALIZED UPPER ABDOMEN: Normal. OTHER FINDINGS: None. IMPRESSION: No active disease.
[2017-08-10 18:23] LABS: ALBUMIN 3.5 g/dL (3.5-5.0); ALT/SGPT 24 U/L (21-72); AST/SGOT 28 U/L (17-59); BLOOD UREA NITROGEN 25 mg/dL (9-20); GFR AFRICAN-AMERICAN > 60; GFR NON-AFRICAN AMERICAN > 60
[2017-08-10 18:34] LABS: PROTHROMBIN TIME 11.3 SECONDS (9.7-12.2)
[2017-08-10] MEDS ORDERED: Enoxaparin 40 mg Syringe SC STA (18:38)
[2017-08-10 18:40] LABS: URINE BILIRUBIN NEGATIVE (NEGATIVE); URINE BLOOD 1+ (NEGATIVE); URINE CLARITY Clear (Clear); URINE COLOR Yellow (YELLOW); URINE GLUCOSE (UA) NORMAL (Normal); URINE LEUKOCYTE ESTERASE NEG Leu/uL (Negative); URINE PROTEIN NEGATIVE (NEGATIVE); URINE UROBILINOGEN NORMAL mg/dL (0.2-1.0)
[2017-08-10] MEDS ORDERED: Sodium Chloride 0.9% 1,000 ML IV STA (18:43)
[2017-08-10] MEDS ORDERED: Enoxaparin 60 mg Syringe ONE (18:55)
[2017-08-10] MEDS ORDERED: Sodium Chloride 0.9% 1,000 ML ONE (18:55)
[2017-08-11] MEDS: Enoxaparin 60 mg Syringe SC SCH ×2 (09:45→21:21)
[2017-08-11] MEDS: Metoprolol Succinate 100 mg XL Tab PO SCH (09:46)
--- NOTE | 2017-08-11 11:43 | VASCLAB ---
PROCEDURE: Lower Extremity Venous Duplex Exam. HISTORY: LLE swelling/elevated DDimer PRIORS: None. TECHNIQUE: Bilateral common femoral, femoral, popliteal and posterior tibial, peroneal and great saphenous veins were evaluated. Flow was assessed with color Doppler, compressibility, assessment of phasic flow and augmentation response. Report prepared by Ty De Luna, CINDA, RVT FINDINGS: RIGHT: 1. Common Femoral Vein: 1.1. Compressibility - Fully compressible: Thrombus - None : Flow - Phasic: Augmentation -Normal: Reflux - None. 2. Femoral Vein: 2.1. Compressibility - Fully compressible: Thrombus - None : Flow - Phasic: Augmentation -Normal: Reflux - None. 3. Popliteal Vein: 3.1. Compressibility - Fully compressible: Thrombus - None : Flow - Phasic: Augmentation -Normal: Reflux - None. 4. Posterior Tibial Vein: 4.1. Compressibility - Fully compressible: Thrombus - None: Flow - Phasic: Augmentation -Normal: Reflux - None. 5. Peroneal Vein: 5.1. Compressibility - Fully compressible: Thrombus - None: Flow - Phasic: Augmentation -Normal: Reflux - None. 6. Great Saphenous Vein: 6.1. Compressibility - Fully compressible: Thrombus - None: Flow - Phasic: Augmentation - Normal: Reflux - None. LEFT: 1. Common Femoral Vein: 1.1. Compressibility - Partial: Thrombus - Acute: Flow - Absent : Augmentation -None: Reflux - None. 2. Femoral Vein: 2.1. Compressibility - Partial: Thrombus - Acute: Flow - Absent : Augmentation -None: Reflux - None. 3. Popliteal Vein: 3.1. Compressibility - Partial: Thrombus - Acute : Flow - Absent : Augmentation -None: Reflux - None. 4. Posterior Tibial Vein: 4.1. Compressibility - Partial: Thrombus - Acute: Flow - Absent : Augmentation -None: Reflux - None. 5. Peroneal Vein: 5.1. Compressibility - Partial: Thrombus - Acute: Flow - Absent : Augmentation -None: Reflux - None. 6. Great Saphenous Vein: 6.1. Compressibility - Fully compressible: Thrombus - None: Flow - Phasic: Augmentation - Normal: Reflux - None. OTHER FINDINGS: RN Sonia notified about the findings. IMPRESSION: Right: No evidence of deep or superficial vein thrombosis of the right lower extremity. Normal valve function noted of the right side. Left: Acute thrombosis of the left common femoral, femoral, popliteal, posterior tibial and peroneal veins with severe reduction of the venous return.
[2017-08-11] MEDS: POLYETHYLENE GLYCOL 3350 17 GM/Dose PACKET PO SCH (12:26)
--- NOTE | 2017-08-11 16:36 | CP.PCM.CON ---
History of Present Illness - History of Present Illness History of Present Illness: Vascular surgery note for Dr. Carreon Consulted for: IVC filter insertion Patient is an 82 y/o male who lives independently who presented to ED 08/10/17 complaining of left lower extremity swelling x 1 week, referred by his primary care provider. Patient denies any lower extremity pain, numbness or tingling, chest pain, SOB, or abdominal pain. Patient reports some weight loss recently. Patient denies any recent travel, prolonged periods of sitting, recent illnesses , surgeries, hospitalizations, and is very mobile with the assistance of a cane , denies history of DVT's CAD, stroke, or falls. No history of clots in family. Patient does not take any blood thinners at home. PMH: gout, anxiety, HTN, pancreatic cyst PSH: denies All: NKDA Review of Systems - Review of Systems All systems: reviewed and no additional remarkable complaints except (as per HPI ) - Gastrointestinal Gastrointestinal: absent: Hematochezia, Melena, Vomiting Past Patient History - Infectious Disease Hx of Infectious Diseases: None - Past Medical History & Family History Past Medical History?: Yes - Past Social History Smoking Status: Never Smoked Alcohol: None Drugs: Denies - CARDIAC Hx Hypertension: Yes - PULMONARY Hx Tuberculosis: No - NEUROLOGICAL Hx Seizures: No - HEENT Hx HEENT Problems: No - RENAL Hx Chronic Kidney Disease: No - ENDOCRINE/METABOLIC Hx Endocrine Disorders: No - HEMATOLOGICAL/ONCOLOGICAL Hx Blood Transfusions: (UNKNOWN) Hx Blood Transfusion Reaction: (UNKNOWN) - INTEGUMENTARY Hx Dermatological Problems: No - MUSCULOSKELETAL/RHEUMATOLOGICAL Hx Arthritis: Yes - GASTROINTESTINAL Hx Gastrointestinal Disorders: No - GENITOURINARY/GYNECOLOGICAL Hx Sexually Transmitted Disorders: No - PSYCHIATRIC Hx Substance Use: No - SURGICAL HISTORY Other/Comment: endoscopy - ANESTHESIA Hx Anesthesia: Yes Hx Anesthesia Reactions: No Meds Allergies/Adverse Reactions: Allergies Allergy/AdvReac Type Severity Reaction Status Date / Time No Known Allergies Allergy Verified 08/10/17 15:35 - Medications Medications: Current Medications Allopurinol (Zyloprim) 100 mg PO DAILY [facility] Last Admin: 08/11/17 09:46 Dose: 100 mg Alprazolam (Xanax) 0.25 mg PO HS PRN PRN Reason: Anxiety Stop: 08/17/17 21:20 Last Admin: 08/10/17 21:32 Dose: 0.25 mg Enoxaparin Sodium (Lovenox) 60 mg SC Q12 [facility] Last Admin: 08/11/17 09:45 Dose: 60 mg Metoprolol Succinate (Toprol Xl) 100 mg PO DAILY [facility] Last Admin: 08/11/17 09:46 Dose: 100 mg Polyethylene Glycol (Miralax) 17 gm PO DAILY [facility] Last Admin: 08/11/17 12:26 Dose: 17 gm Physical Exam - Constitutional Appears: Well, Non-toxic, No Acute Distress - Head Exam Head Exam: ATRAUMATIC, NORMOCEPHALIC - Eye Exam Eye Exam: Normal appearance. absent: Conjunctival injection, Scleral icterus - ENT Exam ENT Exam: Mucous Membranes Moist, Normal Oropharynx - Respiratory Exam Respiratory Exam: NORMAL BREATHING PATTERN. absent: Accessory Muscle Use, Respiratory Distress - Cardiovascular Exam Cardiovascular Exam: RRR - GI/Abdominal Exam GI & Abdominal Exam: Soft. absent: Distended, Tenderness - Extremities Exam Extremities exam: Positive for: calf tenderness (left calf tenderness to palpation, ), pedal edema (left 1+ non-pitting edema, no right edema), pedal pulses present Additional comments: left calf swelling with erythema - Neurological Exam Neurological exam: Alert, Oriented x3 - Psychiatric Exam Psychiatric exam: Normal Affect, Normal Mood - Skin Skin Exam: Dry, Intact, Normal Color, Warm Results - Vital Signs Recent Vital Signs: Last Vital Signs Temp 98.2 F 08/11/17 15:21 Pulse 73 08/11/17 15:21 Resp 20 08/11/17 15:21 BP 186/80 H 08/11/17 15:21 Pulse Ox 97 08/11/17 15:21 - Labs Result Diagrams: 08/10/17 17:22 08/10/17 18:06 Labs: Laboratory Results - last 24 hr 08/10/17 08/10/17 08/10/17 17:22 18:06 18:06 WBC 6.9 RBC 4.36 L Hgb 12.1 Hct 37.5 MCV 86.0 MCH 27.8 MCHC 32.3 L RDW 15.5 H Plt Count 277 MPV 7.9 Neut % (Auto) 67.3 Lymph % (Auto) 23.2 Bleckley % (Auto) 7.9 Eos % (Auto) 0.7 Baso % (Auto) 0.9 Neut # (Auto) 4.6 Lymph # (Auto) 1.6 Bleckley # (Auto) 0.5 Eos # (Auto) 0.0 Baso # (Auto) 0.1 PT 11.3 INR 1.0 APTT 40 H D-Dimer, Quantitative 5403 H Sodium 146 Potassium 5.0 Chloride 108 H Carbon Dioxide 22 Anion Gap 20 BUN 25 H Creatinine 1.1 Est GFR ( Amer) > 60 Est GFR (Non-Af Amer) > 60 Random Glucose 88 Calcium 9.0 Total Bilirubin 0.5 AST 28 ALT 24 Alkaline Phosphatase 70 Total Protein 6.9 Albumin 3.5 Globulin 3.4 Albumin/Globulin Ratio 1.0 Urine Color Urine Clarity Urine pH Ur Specific Gore Urine Protein Urine Glucose (UA) Urine Ketones Urine Blood Urine Nitrate Urine Bilirubin Urine Urobilinogen Ur Leukocyte Esterase Urine WBC (Auto) Urine RBC (Auto) 08/10/17 18:29 WBC RBC Hgb Hct MCV MCH MCHC RDW Plt Count MPV Neut % (Auto) Lymph % (Auto) Bleckley % (Auto) Eos % (Auto) Baso % (Auto) Neut # (Auto) Lymph # (Auto) Bleckley # (Auto) Eos # (Auto) Baso # (Auto) PT INR APTT D-Dimer, Quantitative Sodium Potassium Chloride Carbon Dioxide Anion Gap BUN Creatinine Est GFR ( Amer) Est GFR (Non-Af Amer) Random Glucose Calcium Total Bilirubin AST ALT Alkaline Phosphatase Total Protein Albumin Globulin Albumin/Globulin Ratio Urine Color Yellow Urine Clarity Clear Urine pH 5.0 Ur Specific Gore 1.016 Urine Protein Negative Urine Glucose (UA) Normal Urine Ketones Negative Urine Blood 1+ H Urine Nitrate Negative Urine Bilirubin Negative Urine Urobilinogen Normal Ur Leukocyte Esterase Neg Urine WBC (Auto) 1 Urine RBC (Auto) 6 H Assessment & Plan - Assessment and Plan (Free Text) Assessment: Patient is an 82y male with acute DVT of the left lower extremity. Plan: - follow CT venogram of abd/pelvis to r/o thrombosis of the iliacs - F/U CTA of the chest to r/o PE - OR with Dr. Carreon for IVC filter tomorrow - continue Lovenox - NPO after midnight - PRN pain medication - Strict bed rest - Elevate the left lower extremity - Patient needs malignancy work up as possible etiology Discussed and examined with Dr. Carreon who agrees with above Mirella Fink PGY2 - Date & Time Date: 08/11/17 Time: 17:31
[2017-08-11] MEDS ORDERED: Sodium Chloride 0.9% 1,000 ML IV SCH (17:00)
[2017-08-12] MEDS ORDERED: Lactated Ringer's 1,000 ML IV SCH (00:01)
--- NOTE | 2017-08-12 02:27 | HP ---
HISTORY OF PRESENT ILLNESS: The patient is an 82-year-old male with history of multiple medical problems presented to my office on the day of admission with progressive swelling of the left lower extremity for 3 days duration. The patient was referred to emergency room for evaluation and admitted for further management. The patient was started on anticoagulants. The patient had venous Doppler and it showed deep venous thrombosis of the left common femoral, popliteal, posterior tibial, and peroneal veins with severe reduction of the venous return. Other review of systems is negative. ALLERGIES: NO KNOWN ALLERGY. MEDICATIONS: As per MAR. 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 SOCIAL HISTORY: No history of smoking, EtOH, or substance abuse. FAMILY HISTORY: Noncontributory. PHYSICAL EXAMINATION: GENERAL: The patient is in bed comfortable, not in any cardiopulmonary distress. VITAL SIGNS: Blood pressure 164/80, temperature 98.2, respiratory rate 20, and pulse 73. HEENT: Pupils equal and reactive to light. Normal appearing mucosa of the conjunctivae, oropharyngeal mucosa is normal. NECK: Supple. No JVD. No carotid bruit. No lymph node. No thyromegaly. CHEST/LUNGS: Bilateral symmetrical expansion. Good air exchange. No rales, no rhonchi. CARDIOVASCULAR SYSTEM: PMI not localized. S1, S2. No additional sounds. ABDOMEN: Normoactive bowel sounds. No tenderness. No organomegaly. No masses. EXTREMITIES: No cyanosis, no clubbing, no edema. OFFICE REP: Alert, awake, oriented x2. No neurological deficit could be appreciated. EXTREMITIES: The patient has remarkable swelling of the left lower extremity compared to the right. ASSESSMENT: 1. Acute thrombosis of the femoral vein, popliteal and posterior tibial veins on the left side. 2. Hypertension. 3. Gouty arthritis. PLAN: The patient is started already on Lovenox which we will continue every 12 hours. Vascular surgery consult and follow recommendations, echocardiogram, EKG. Howard Davis MD
[2017-08-12 08:01] LABS: BASO # 0.1 K/uL (0.0-0.2); EOS # 0.1 K/uL (0.0-0.7); EOS % 1.3 % (0.0-4.0); HEMOGLOBIN 11.2 g/dL (12.0-18.0); LYMPH # 1.8 K/uL (1.0-4.3); LYMPH % 27.7 % (20.0-40.0); MEAN CELL VOLUME 84.5 fL (80.0-94.0); MEAN CORPUSCULAR HEMOGLOBIN 28.3 pg (27.0-31.0); MEAN CORPUSCULAR HGB CONC 33.4 g/dL (33.0-37.0); MEAN PLATELET VOLUME 7.9 fL (7.2-11.7); MONO # 0.6 K/uL (0.0-0.8); NEUT # 3.8 K/uL (1.8-7.0); RBC 3.98 Mil/uL (4.40-5.90); RED CELL DISTRIBUTION WIDTH 14.8 % (11.5-14.5); WHITE BLOOD COUNT 6.3 K/uL (4.8-10.8)
[2017-08-12 08:19] LABS: BLOOD UREA NITROGEN 17 mg/dL (9-20); CALCIUM 8.3 mg/dl (8.6-10.4); GFR AFRICAN-AMERICAN > 60; GFR NON-AFRICAN AMERICAN > 60
[2017-08-12] MEDS: Enoxaparin 60 mg Syringe SC SCH ×2 (09:07→21:23)
[2017-08-12] MEDS: POLYETHYLENE GLYCOL 3350 17 GM/Dose PACKET PO SCH (10:42)
[2017-08-12] MEDS: Sodium Chloride 0.9% 1,000 ML IV SCH ×2 (10:42→20:24)
[2017-08-12] MEDS: Metoprolol Succinate 100 mg XL Tab PO SCH (10:54)
[2017-08-12] MEDS ORDERED: HEPARIN-NS 5,000 UNITS/500 ML 5,000 UNIT/500 ML BAG IV ONE (11:06)
[2017-08-12] MEDS ORDERED: ceFAZolin 1 gm in NS 2 GM/200 ML BAG IVPB ONE (11:06)
[2017-08-12] MEDS ORDERED: Iohexol 240 (50 ml) ONE (11:10)
[2017-08-12] MEDS ORDERED: Propofol 10 mg/ml Inj (20 ML) ONE (11:14)
[2017-08-12] MEDS ORDERED: Midazolam 2 MG/2 ML VIAL ONE (11:14)
[2017-08-12] MEDS ORDERED: Labetalol 25mg/5ml Syringe ONE (11:44)
--- NOTE | 2017-08-12 12:39 | PCM.SURG1 ---
Surgeon's Initial Post Op Note - Surgeon's Notes Surgeon: Dr. Carreon Pulmonary Nurse Practitioner: Alessandra Redd PGY1, Rui Davies MS3 Pre-Operative Diagnosis: Left lower extremity DVT Operative Findings: See op report Post-Operative Diagnosis: Left lower extremity DVT Operation Performed: IVC filter placement Specimen/Specimens Removed: none Estimated Blood Loss: EBL {In ML}: 5 Blood Products Given: N/A Drains Used: No Drains Post-Op Condition: Good Date of Surgery/Procedure: 08/12/17 Time of Surgery/Procedure: 12:39
--- NOTE | 2017-08-12 14:14 | RAD ---
PROCEDURE: Intraoperative Fluoroscopy. HISTORY: Deep venous thrombosis FINDINGS: Fluoroscopic assistance was provided for IVC filter placement. Please refer to the operative report from DIANE Wilkerson.
[2017-08-12] MEDS ORDERED: Iodixanol 320 mg/ml 150 ml Bottle IV ONE (14:54)
--- NOTE | 2017-08-12 20:19 | CT ---
EXAM: CT Angiography Abdomen and Pelvis With Runoff to the Lower Extremities With Intravenous Contrast EXAM DATE/TIME: Exam ordered 08/12/2017 1:24 PM CLINICAL HISTORY: 82 years old, male; Condition or disease; Other: Dvt; Additional info: Dvt evaluation TECHNIQUE: Axial computed tomographic angiography images of the abdomen, pelvis and lower extremities with intravenous contrast using CT angiography protocol. All CT scans at this facility use one or more dose reduction techniques, viz.: automated exposure control; ma/kV adjustment per patient size (including targeted exams where dose is matched to indication; i.e. head); or iterative reconstruction technique. MIP reconstructed images were created and reviewed. Coronal and sagittal reformatted images were created and reviewed. CONTRAST: 100 mL of visipaque 320 administered intravenously. COMPARISON: VENOUS DUPLEX SCAN LOW EXT BI 2017-08-11 09:56 FINDINGS: VASCULATURE: Aorta: Mild atherosclerotic changes are noted of the bilateral lower chest remedies. No abdominal aortic aneurysm. No dissection. Celiac trunk and mesenteric arteries: No acute findings. No occlusion or significant stenosis. Renal arteries: No acute findings. No occlusion or significant stenosis. Right iliac arteries: No acute findings. No occlusion or significant stenosis. Right femoral/popliteal arteries: Mild to moderate atherosclerotic changes. Moderate at least 60% stenosis at the origin of the right femoral artery. No occlusion or significant stenosis. Right calf/foot arteries: Mild to moderate atherosclerotic changes. No acute findings. No occlusion or significant stenosis. Left iliac arteries: See below. Left femoral/popliteal arteries: No acute findings. No occlusion or significant stenosis. Left calf/foot arteries: No acute findings. No occlusion or significant stenosis. Lower extremity veins: Clot is noted within the posterior tibial and peroneal branches of the left leg. Clot extends into the popliteal vein. A thin strand of thrombus is suggested in the distal femoral vein. Clot is noted within the left mid and proximal femoral vein extending into the common femoral vein, the external iliac vein and the common iliac vein. Note is made of the common iliac vein is markedly compressed against the adjacent lumbar spine by the overlying common iliac artery. An inferior vena cava filter is in place. No thrombus is seen in the inferior vena cava. Lung bases: Unremarkable. No mass. No consolidation. ABDOMEN: Liver: Unremarkable. No mass. Gallbladder and bile ducts: Sludge and tiny stones are suggested in the dependent portion of the gallbladder. No ductal dilation. Pancreas: There are 4 cysts noted within the body of the pancreas. From midline to left they measure 1.5 x 0.9 by 1 cm; 0.8 x 1 by 0.6 cm; 5 mm; and 0.9 x 0.9 by 1.4 cm. 2 cysts are noted in the head of the pancreas measuring 1.6 x 1.5 by 1.2 cm and 0.9 x 1.2 by 0.6 cm. No ductal dilation. Spleen: Unremarkable. No splenomegaly. Adrenals: Unremarkable. No mass. Kidneys and ureters: The right kidney is atrophic. A faint nephrogram is seen in the right kidney. A hyperdense lesion extends off the midportion of the right kidney measure 1.5 cm in maximum diameter with a density measurement of 60 H. A 1 cm cyst is seen in the midportion of the right kidney. 1 cm cyst is seen in the upper pole of the right kidney. An 8mm hyperdense lesion is noted in the lower pole of the left kidney with a density measurement of 40 H. Subcortical hyperdense lesion is noted in the mid kidney measuring 8 mm in diameter with a density measurement of 178H. An exophytic hyperdense lesion projects off the lower pole the left kidney measuring 1.5 cm in diameter. No hydronephrosis. Stomach and bowel: Unremarkable. No obstruction. No mucosal thickening. Appendix: No findings to suggest acute appendicitis. PELVIS: Bladder: Unremarkable. No mass. Reproductive: The prostate is markedly enlarged and lobulated in configuration measuring 5.1 x 6.4 by 5.1 cm. ABDOMEN, PELVIS and LOWER EXTREMITIES: Intraperitoneal space: Unremarkable. No significant fluid collection. No free air. Bones/joints: Moderately advanced degenerative changes are noted at the patellofemoral joints bilaterally. There is a partial fusion of the sacroiliac joints. Advanced degenerative changes are seen of the right hip with large marginal osteophytes, joint space narrowing and subchondral sclerosis and subchondral cyst formation. No acute fracture. No dislocation. Soft tissues: There is marked soft tissue edema in the left lower leg. Edema of the lower leg extends into the thigh. There is mild relative atrophy of the gluteal muscles on the right. A small amount of fluid extends into and on the local hernia Lymph nodes: Unremarkable. No enlarged lymph nodes. IMPRESSION: 1. DVT in the left leg from the common femoral vein down to the level of the peroneal and posterior tibial veins. 2. The left common iliac vein is compressed/narrowed by the overlying common iliac artery anteriorly and the lumbar spine posteriorly 3. Mild to moderate diffuse atherosclerotic changes bilaterally in the legs including a 50-60% stenosis of the right common femoral artery. 4. Atrophic right kidney. 5. Bilateral renal cysts and hyperdense masses not meeting the criteria for simple renal cysts. Dedicated renal CT or MRI be considered. Comparison with old studies would also be helpful. 6. The prostate is enlarged. Correlate with serum PSA. 7. Pancreatic cysts as described above. These could represent small pseudocysts in a patient with a history of previous pancreatitis. Cystic neoplasm or IDPN are other considerations. Comparison with old films would be helpful.. 8. Small gallstones and sludge seen in the gallbladder
--- NOTE | 2017-08-12 23:04 | CP.PCM.PCO ---
Physician Communication Note - Physician Communication Note Physician Communication Note: pt for thrombectomy on 08/[address] Carreon, consent in chart
--- NOTE | 2017-08-13 01:28 | OP ---
PROCEDURE DATE: 08/12/2017 PREOPERATIVE DIAGNOSIS: Left femoral deep vein thrombosis. POSTOPERATIVE DIAGNOSIS: Left femoral deep vein thrombosis. PROCEDURE: Duplex ultrasound of the right femoral vein, insertion of inferior vena cava filter via the right femoral vein, vena cavogram. SURGEON: Sadie Carreon MD TYPE OF ANESTHESIA: Local with IV sedation. DESCRIPTION OF PROCEDURE: The patient was brought to the OR and placed supine on the OR table. After adequate IV sedation had been accomplished, the right groin was prepped with Chloraprep and draped out as a sterile field. After local infiltration of 1% Xylocaine, an ultrasound was performed on the right groin showing a patent femoral artery and femoral vein. The femoral vein contained no thrombus. It was percutaneously accessed with a micropuncture tip and a micro guidewire passed into the iliac vein. The micro guidewire was exchanged for an 0.035 guidewire. In this case, a stiff angled Geismar was used. The argon filter was selected and passed over the guidewire into the inferior vena cava. The dilator and sheath of the argon filter was passed into the inferior vena cava. The dilator was removed and a vena cavogram was performed showing the renal vein to be at the L1-L2 intervertebral space. After that, the guidewire was left in place. The tip of the sheath was aligned with the L1-L2 intervertebral space where the renal vein entered. The filter was loaded and the pusher was used over the guidewire to deploy the filter. The filter was deployed by pulling back on the sheath. Completion vena cavogram showed that the filter was straight and in good position with the tip of that at the confluence of the right and the left renal vein. The sheath and dilator were removed. Pressure was held at the right groin. The patient tolerated the procedure well and was returned to the recovery room in stable condition. Sadie Carreon MD
--- NOTE | 2017-08-13 07:28 | CARD ---
APPROVED REPORT EXAM: Two-dimensional and M-mode echocardiogram with Doppler and color Doppler. Other Information Quality : GoodRhythm : INDICATION Atrial Fibrillation RISK FACTORS Hypertension 2D DIMENSIONS IVSd0.9 (0.7-1.1cm)LVDd4.0 (3.9-5.9cm) PWd0.8 (0.7-1.1cm)LVDs2.1 (2.5-4.0cm) FS (%) 47.6 %LVEF (%)70.0 (>50%) M-Mode DIMENSIONS RVDd1.74 (2.1-3.2cm)Left Atrium (MM)4.26 (2.5-4.0cm) IVSd1.11 (0.7-1.1cm)Aortic Root2.69 (2.2-3.7cm) LVDd4.44 (4.0-5.6cm)Aortic Cusp Exc.1.63 (1.5-2.0cm) PWd1.08 (0.7-1.1cm)FS (%) 48 % LVDs2.29 (2.0-3.8cm)LVEF (%)80 (>50%) Mitral Valve MV E Fcaszqmf48.3cm/sMV A Ksberpgx10.4cm/sE/A ratio0.9 TDI E/Lateral E'0.0E/Medial E'0.0 Tricuspid Valve TR Peak Fdywluhi976am/sTR Peak Gr.22pgDoJCNZ32hyLx LEFT VENTRICLE The left ventricle is normal size. There is normal left ventricular wall thickness. The left ventricular function is normal. The left ventricular ejection fraction is within the normal range. There is normal LV segmental wall motion. Transmitral Doppler flow pattern is abnormal. RIGHT VENTRICLE The right ventricle is normal size. ATRIA The left atrium is mildly dilated. The right atrium size is normal. AORTIC VALVE The aortic valve is calcified but opens well. MITRAL VALVE Mitral regurgitation is trace. TRICUSPID VALVE There is trace to mild tricuspid regurgitation. <Conclusion> Normal LV systolic function. Diastolic dysfunction. Mildly dilated LA. Trace MR. Trace to mild TR.
--- NOTE | 2017-08-13 07:29 | PN ---
DATE: 08/12/2017 SUBJECTIVE: The patient is seen today, 08/12/2017. He is not in any cardiopulmonary distress. The patient was seen in recovery room after placing an IVC filter. OBJECTIVE: VITAL SIGNS: Blood pressure 118/69, temperature 97.7, respiratory rate 18, and pulse 70. HEENT: Pupils equal and reactive to light. Normal-appearing mucosa of the conjunctivae, oropharynx, and nasal membrane mucosa. NECK: Supple. No JVD. No carotid bruit. No lymph node. No thyromegaly. CHEST AND LUNGS: Bilateral symmetrical expansion. Good air exchange. No rales, no rhonchi. CARDIOVASCULAR SYSTEM: PMI not localized. S1, S2. No additional sounds. ABDOMEN: Normoactive bowel sounds. No tenderness. No organomegaly. No masses. EXTREMITIES: No cyanosis, no clubbing, no edema. SALESPERSON WIGS: Alert, awake, and oriented x3. No neurological deficit could be appreciated. ASSESSMENT: 1. Acute deep venous thrombosis of the left lower extremity. 2. Hypertension. 3. History of pancreatic mucinous cyst. 4. Gouty arthritis. 5. Osteoarthritis. PLAN: Continue current medications including Lovenox 40 mg subcu every 12 hours, and follow vascular surgery recommendations. Howard Davis MD
--- NOTE | 2017-08-13 08:00 | CARD ---
APPROVED REPORT EKG Measurement Heart [id number] <Conclusion> Sinus rhythm
[2017-08-13] MEDS ORDERED: Etomidate 20 mg/10ml Inj IV ONE ×2 (09:34→11:22)
[2017-08-13] MEDS ORDERED: Midazolam 2 MG/2 ML VIAL ONE ×2 (09:34→11:09)
[2017-08-13] MEDS ORDERED: Iodixanol 320 MG/ML 200 ML BOTTLE IV ONE (09:41)
--- NOTE | 2017-08-13 10:26 | CARD ---
APPROVED REPORT EKG Measurement Heart [id number] <Conclusion> Atrial fibrillation with slow ventricular response Abnormal ECG
[2017-08-13] MEDS: Metoprolol Succinate 100 mg XL Tab PO SCH ×2 (10:39→14:13)
[2017-08-13] MEDS: POLYETHYLENE GLYCOL 3350 17 GM/Dose PACKET PO SCH (10:39)
--- NOTE | 2017-08-13 12:05 | PCM.SURG1 ---
Surgeon's Initial Post Op Note - Surgeon's Notes Surgeon: Dr. Sadie Carreon Die Out Worker: Mirella Fink, PGY2. Rui Davies, OMS3 Pre-Operative Diagnosis: DVT LLE Operative Findings: Thrombosis extending from the left popliteal to the common iliac vein. Good patency and flow up into the IVC demonstrated on flouroscopy after operation. See full operative report Post-Operative Diagnosis: same Operation Performed: percutaneous pharmicological and mechanical thrombolysis of deep vein thrombosis of the left lower extremity, balloon angioplasty and stent placement of the left common iliac vein Specimen/Specimens Removed: none Estimated Blood Loss: EBL {In ML}: 30 Blood Products Given: N/A Drains Used: No Drains Post-Op Condition: Fair Date of Surgery/Procedure: 08/13/17 Time of Surgery/Procedure: 09:00
[2017-08-13] MEDS ORDERED: Iohexol 240 (50 ml) PO ONE (16:15)
[2017-08-13] MEDS ORDERED: Iohexol 350mg/ml 100 ML ONE (16:35)
[2017-08-13] MEDS: Sodium Chloride 0.9% 1,000 ML IV SCH (21:45)
[2017-08-13] MEDS: Enoxaparin 60 mg Syringe SC SCH (21:46)
--- NOTE | 2017-08-13 23:27 | OP ---
PROCEDURE DATE: PREOPERATIVE DIAGNOSIS: Left leg iliofemoral venous thrombosis, status post IVC filter insertion. POSTOPERATIVE DIAGNOSIS: Left leg iliofemoral venous thrombosis, status post IVC filter insertion. 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 ANESTHESIA: Local IV sedation. PROCEDURE: Pharmacomechanical thrombolysis of the left iliofemoral and popliteal vein, balloon angioplasty of the left iliac vein and insertion of venous stents 14 x 80 mm, right iliac vein venogram, balloon angioplasty, the confluence of the right and left iliac vein, ultrasound popliteal artery and vein SURGEON: Sadie Carreon MD SCHOOL PSYCHOLOGY PROFESSOR: DESCRIPTION OF PROCEDURE: The patient was brought to the cardiac pathology laboratory aides teacher and placed in prone position. After IV sedation had been accomplished, the left popliteal fossa was prepped with Chloraprep and draped out as a sterile field. Ultrasound of left popliteal vein was performed. The vein is partially occluded by thrombus but it is compressible. It was percutaneously accessed using a micropuncture tip and the micro guidewire passed into the popliteal vein. The micro guidewire was exchanged for a 0.035 stiff angled glide wire, and this was passed cephalad into the iliac veins that was caught up at the iliocaval junction that is suggestive of occlusion. Using a Berenstein catheter, the guidewire was successfully maneuvered into the cava. Vena cavagram showed no thrombus in the vena cava, so we passed the AngioJet catheter over the glide wire into the cava. After using 8 mg of tPA in 100 mL of saline, the iliofemoral and popliteal vein was sprayed with the tPA solution. After that, 30 minutes of this allowed to left before using thrombectomy catheter. Thrombectomy was successful after 30 minutes. Repeat venogram showed residual clot in the external iliac vein and occlusion in the common iliac vein. The catheter was passed in the common iliac vein. There was a 4 cm segment of stenosis or occlusion just distal to the confluence of the iliac vein to the vena cava. Repeat balloon angioplasty of that showed resolution of the stenosis with the balloon up; however, the occlusion recurred as soon as the balloon is out. We felt that the iliac stent was indicative. The area of the confluence was marked out, an 80 x 14 mm iliac stent was chosen and it was deployed at the confluence of the iliac vein with the vena cava; however, it was felt that the iliac stent was encroaching on the opposite common iliac vein necessitating passing a guidewire down the right common iliac vein, the confluence of the stent with the right iliac vein with balloon using a 10 x 80 mm balloon successfully. Completion venogram performed with the catheter in the right iliac vein showed free passage of dye into the vena cava. The left iliac vein, external iliac vein, femoral vein, and proximal superficial femoral vein were 10 x 80 mm balloon. The patient was systemically heparinized at this point. Patency of the iliac vein was accomplished with free flow of contrast into the cava ingesting from the popliteal vein, so we terminated the procedure. The sheath, catheter, and guidewire were all pulled out, and the puncture site was closed with a 2-0 Monocryl Pure-string. The leg was dressed with SHANTE wrap. The patient tolerated the procedure well and was returned to the recovery room in stable condition. Sadie Carreon MD MANDY
--- NOTE | 2017-08-14 02:54 | PN ---
DATE: 08/13/2017 SUBJECTIVE: The patient is seen today, 08/13/2017. He is status post IVC filter placement and thrombolysis of acute DVT that passed the left common iliac vein. The patient is currently on Lovenox 60 mg every 12 hours. PHYSICAL EXAMINATION: VITAL SIGNS: Blood pressure 155/99, temperature 98.2, respiratory rate 20, and pulse 82. HEENT: Pupils equal and reactive to light. Normal-appearing mucosa of the conjunctivae, oropharynx, and nasal membrane mucosa. NECK: Supple. No JVD. No carotid bruits. No lymph node. No thyromegaly. CHEST AND LUNGS: Bilateral symmetrical expansion. Good air exchange. No rales. No rhonchi. CARDIOVASCULAR: PMI not localized, S1 and S2. No additional sounds. ABDOMEN: Normoactive bowel sounds noted. No tenderness. No organomegaly. No masses. EXTREMITIES: No cyanosis or clubbing; +2 edema of the left lower extremity compared to the right. HEAD COUNSELOR: Alert, awake, and oriented x2. No neurological deficit could be appreciated. ASSESSMENT: 1. Acute deep venous thrombosis of the left lower extremity that passed the common iliac vein. Status post thrombolysis after IVC filter placement. 2. Hypertension. 3. Osteoarthritis. 4. Benign prostate hypertrophy. PLAN: Continue with the Lovenox 60 mg every 12 hours and follow vascular surgery recommendations, physical therapy, and rehabilitation. Howard Davis MD
[2017-08-14] MEDS: Sodium Chloride 0.9% 1,000 ML IV SCH ×4 (03:40→22:42)
[2017-08-14 07:13] LABS: HEMOGLOBIN 9.8 g/dL (12.0-18.0); MEAN CELL VOLUME 84.3 fL (80.0-94.0); MEAN CORPUSCULAR HEMOGLOBIN 27.4 pg (27.0-31.0); MEAN CORPUSCULAR HGB CONC 32.5 g/dL (33.0-37.0); MEAN PLATELET VOLUME 7.7 fL (7.2-11.7); RBC 3.57 Mil/uL (4.40-5.90); RED CELL DISTRIBUTION WIDTH 15.1 % (11.5-14.5); WHITE BLOOD COUNT 13.9 K/uL (4.8-10.8)
[2017-08-14 07:15] LABS: BLOOD UREA NITROGEN 14 mg/dL (9-20); GFR AFRICAN-AMERICAN > 60; GFR NON-AFRICAN AMERICAN > 60
--- NOTE | 2017-08-14 07:46 | CP.PCM.PN ---
Subjective - Date & Time of Evaluation Date of Evaluation: 08/14/17 Time of Evaluation: 06:30 - Subjective Subjective: Patient seen and examined this AM. Yesterday patient had bleeding from the right groin access site for the IVC filter which resolved with a pressure dressing. Patient complains of lower back pain but no abdominal pain. Denies any leg pain, swelling is improved. Objective - Vital Signs/Intake and Output Vital Signs (last 24 hours): Temp Pulse Resp BP Pulse Ox 98.0 F 67 20 150/78 97 08/13/17 23:45 08/14/17 04:10 08/13/17 23:45 08/13/17 23:45 08/13/17 23:45 Intake and Output: 08/14/17 08/14/17 06:59 18:59 Intake Total 920 Output Total 800 Balance 120 - Medications Medications: Current Medications Acetaminophen (Tylenol 325mg Tab) 650 mg PO Q6 PRN PRN Reason: Pain, moderate (4-7) Allopurinol (Zyloprim) 100 mg PO DAILY COUNTS INCLUDE 234 BEDS AT THE [facility] Last Admin: 08/13/17 14:13 Dose: 100 mg Alprazolam (Xanax) 0.25 mg PO HS PRN PRN Reason: Anxiety Stop: 08/17/17 21:20 Last Admin: 08/14/17 02:29 Dose: 0.25 mg Amlodipine Besylate (Norvasc) 2.5 mg PO DAILY COUNTS INCLUDE 234 BEDS AT THE [facility] Last Admin: 08/13/17 17:45 Dose: 2.5 mg Enoxaparin Sodium (Lovenox) 60 mg SC Q12 COUNTS INCLUDE 234 BEDS AT THE [facility] Last Admin: 08/13/17 21:46 Dose: Not Given Sodium Chloride (Sodium Chloride 0.9%) 1,000 mls @ 100 mls/hr IV .Q10H COUNTS INCLUDE 234 BEDS AT THE [facility] Last Admin: 08/14/17 03:40 Dose: 100 mls/hr Metoprolol Succinate (Toprol Xl) 100 mg PO DAILY COUNTS INCLUDE 234 BEDS AT THE [facility] Last Admin: 08/13/17 14:13 Dose: 100 mg Polyethylene Glycol (Miralax) 17 gm PO DAILY COUNTS INCLUDE 234 BEDS AT THE [facility] Last Admin: 08/13/17 10:39 Dose: Not Given - Labs Labs: 08/14/17 07:00 08/14/17 07:00 PT 11.3 SECONDS (9.7-12.2) 08/10/17 18:06 INR 1.0 08/10/17 18:06 APTT 40 SECONDS (21-34) H 08/10/17 18:06 - Constitutional Appears: Well, Non-toxic, No Acute Distress - Head Exam Head Exam: ATRAUMATIC, NORMOCEPHALIC - Eye Exam Eye Exam: Normal appearance. absent: Conjunctival injection, Scleral icterus - ENT Exam ENT Exam: Mucous Membranes Moist, Normal Oropharynx - Respiratory Exam Respiratory Exam: NORMAL BREATHING PATTERN. absent: Accessory Muscle Use, Respiratory Distress - GI/Abdominal Exam GI & Abdominal Exam: Soft. absent: Distended, Tenderness - Extremities Exam Extremities Exam: Pedal Edema (1+ pitting edema in the left lower leg up to the knee). absent: Calf Tenderness, Tenderness Additional comments: SHANTE bandage around left leg clean and dry, no bleeding from the left popliteal access site. right groin access site dressing C/D/I. no swelling, mild ecchymosis. BL feet warm and normal color - Neurological Exam Neurological Exam: Alert, Awake, Oriented x3 - Psychiatric Exam Psychiatric exam: Normal Affect, Normal Mood - Skin Skin Exam: Dry, Normal Color, Warm Assessment and Plan - Assessment and Plan (Free Text) Assessment: 82M with DVT of the left leg POD#1 s/p percutaneous left lower extremity venous thrombectomy and POD#2 s/p IVC filter replacement Plan: -Continue compression wrap with shante bandage on left lower extremity -Continue anticoagulation -Continue PRN tylenol for pain -No activity restrictions Discussed with Dr. Lauri Fink, PGY2
[2017-08-14] MEDS: POLYETHYLENE GLYCOL 3350 17 GM/Dose PACKET PO SCH (09:26)
[2017-08-14] MEDS: Metoprolol Succinate 100 mg XL Tab PO SCH (09:26)
[2017-08-14] MEDS: Enoxaparin 60 mg Syringe SC SCH (09:26)
--- NOTE | 2017-08-15 06:28 | CP.PCM.PN ---
Subjective - Date & Time of Evaluation Date of Evaluation: 08/15/17 Time of Evaluation: 07:00 - Subjective Subjective: Pt seen and examined at bedside. No adverse events overnight. Patient denies any pain, swelling in left leg improved. No bleeding from right groin access site. Ambulating well. No chest pain or Shortness of breath. Patient is awaiting authorization for RODRIGUEZ placement Objective - Vital Signs/Intake and Output Vital Signs (last 24 hours): Temp Pulse Resp BP Pulse Ox 97.8 F 75 20 152/85 H 97 08/14/17 23:31 08/15/17 04:00 08/14/17 23:31 08/14/17 23:31 08/14/17 23:31 Intake and Output: 08/14/17 08/15/17 18:59 06:59 Intake Total 1200 Balance 1200 - Medications Medications: Current Medications Acetaminophen (Tylenol 325mg Tab) 650 mg PO Q6 PRN PRN Reason: Pain, moderate (4-7) Allopurinol (Zyloprim) 100 mg PO DAILY [facility] Last Admin: 08/14/17 09:26 Dose: 100 mg Alprazolam (Xanax) 0.25 mg PO HS PRN PRN Reason: Anxiety Stop: 08/17/17 21:20 Last Admin: 08/14/17 22:45 Dose: 0.25 mg Amlodipine Besylate (Norvasc) 2.5 mg PO DAILY [facility] Last Admin: 08/14/17 09:26 Dose: 2.5 mg Apixaban (Eliquis) 10 mg PO BID [facility] Stop: 08/24/17 18:01 Last Admin: 08/14/17 17:22 Dose: 10 mg Metoprolol Succinate (Toprol Xl) 100 mg PO DAILY [facility] Last Admin: 08/14/17 09:26 Dose: 100 mg Polyethylene Glycol (Miralax) 17 gm PO DAILY [facility] Last Admin: 08/14/17 09:26 Dose: 17 gm - Labs Labs: 08/14/17 07:00 08/14/17 07:00 PT 11.3 SECONDS (9.7-12.2) 08/10/17 18:06 INR 1.0 08/10/17 18:06 APTT 40 SECONDS (21-34) H 08/10/17 18:06 - Constitutional Appears: Well, Non-toxic, No Acute Distress - Eye Exam Eye Exam: Normal appearance - ENT Exam ENT Exam: Mucous Membranes Moist, Normal Oropharynx - Respiratory Exam Respiratory Exam: NORMAL BREATHING PATTERN. absent: Accessory Muscle Use, Respiratory Distress - Extremities Exam Extremities Exam: Normal Capillary Refill, Pedal Edema (left lower leg with 1+ pitting edema, palpable pulses). absent: Calf Tenderness Additional comments: von bandage intact on the lower extremity - Neurological Exam Neurological Exam: Alert, Awake, Oriented x3 - Psychiatric Exam Psychiatric exam: Normal Affect, Normal Mood - Skin Skin Exam: Dry, Normal Color, Warm Assessment and Plan - Assessment and Plan (Free Text) Assessment: 82M with DVT of the LLE POD#2 s/p percutaneous venous thrombectomy of the left leg and POD#3 s/p IVC filter Plan: -Patient recovering well, swelling in left lower extremity continues to decrease -Q8H dressing changes with von bandage for compression -Patient is cleared for discharge from a surgical standpoint with continued anticoagulation and compression of the left lower extremity -Follow up with Dr. Carreon in her office in 1-2 weeks -thank you for this consult, please reach out to surgical team for any further questions or concerns Discussed with Dr. Carreon who agrees with above Mirella Fink, PGY2
[2017-08-15 08:20] LABS: ALBUMIN 2.5 g/dL (3.5-5.0); ALT/SGPT 21 U/L (21-72); AST/SGOT 31 U/L (17-59); BLOOD UREA NITROGEN 17 mg/dL (9-20); CALCIUM 7.8 mg/dl (8.6-10.4); GFR AFRICAN-AMERICAN > 60; GFR NON-AFRICAN AMERICAN > 60
[2017-08-15 08:24] LABS: BASO % 0.3 % (0.0-2.0); EOS # 0.2 K/uL (0.0-0.7); HEMOGLOBIN 9.2 g/dL (12.0-18.0); LYMPH # 1.5 K/uL (1.0-4.3); LYMPH % 16.8 % (20.0-40.0); MEAN CELL VOLUME 83.7 fL (80.0-94.0); MEAN CORPUSCULAR HEMOGLOBIN 28.1 pg (27.0-31.0); MEAN CORPUSCULAR HGB CONC 33.5 g/dL (33.0-37.0); MONO # 0.9 K/uL (0.0-0.8); MONO % 9.6 % (0.0-10.0); NEUT # 6.3 K/uL (1.8-7.0); NEUT % 71.3 % (50.0-75.0); RBC 3.26 Mil/uL (4.40-5.90); RED CELL DISTRIBUTION WIDTH 14.9 % (11.5-14.5); WHITE BLOOD COUNT 8.9 K/uL (4.8-10.8)
[2017-08-15] MEDS: Metoprolol Succinate 100 mg XL Tab PO SCH (09:24)
[2017-08-15] MEDS: POLYETHYLENE GLYCOL 3350 17 GM/Dose PACKET PO SCH (09:24)
--- NOTE | 2017-08-15 12:06 | CP.PCM.PN ---
Subjective - Date & Time of Evaluation Date of Evaluation: 08/15/17 Time of Evaluation: 11:53 - Subjective Subjective: Medicine progress note for Dr. Julio Stock (covering Dr. Davis) Patient seen and examined. Patient states he is feeling well and his pain is well-controlled. Patient states he is eating well and denies nausea, vomiting, diarrhea or constipation. Patient states he is eager to get to rehab to get his strength back for his 64th high school reunion in October taking place in [place]. Objective - Vital Signs/Intake and Output Vital Signs (last 24 hours): Temp Pulse Resp BP Pulse Ox 98.5 F 76 18 161/80 H 100 08/15/17 07:05 08/15/17 09:24 08/15/17 07:05 08/15/17 09:24 08/15/17 07:05 Intake and Output: 08/15/17 08/15/17 06:59 18:59 Intake Total 920 Balance 920 - Medications Medications: Current Medications Acetaminophen (Tylenol 325mg Tab) 650 mg PO Q6 PRN PRN Reason: Pain, moderate (4-7) Allopurinol (Zyloprim) 100 mg PO DAILY [facility] Last Admin: 08/15/17 09:24 Dose: 100 mg Alprazolam (Xanax) 0.25 mg PO HS PRN PRN Reason: Anxiety Stop: 08/17/17 21:20 Last Admin: 08/14/17 22:45 Dose: 0.25 mg Amlodipine Besylate (Norvasc) 2.5 mg PO DAILY [facility] Last Admin: 08/15/17 09:24 Dose: 2.5 mg Apixaban (Eliquis) 10 mg PO BID [facility] Stop: 08/24/17 18:01 Last Admin: 08/15/17 09:24 Dose: 10 mg Metoprolol Succinate (Toprol Xl) 100 mg PO DAILY [facility] Last Admin: 08/15/17 09:24 Dose: 100 mg Polyethylene Glycol (Miralax) 17 gm PO DAILY [facility] Last Admin: 08/15/17 09:24 Dose: 17 gm - Labs Labs: 08/15/17 07:47 08/15/17 07:47 PT 11.3 SECONDS (9.7-12.2) 08/10/17 18:06 INR 1.0 04/03/18 18:06 APTT 40 SECONDS (21-34) H 08/10/17 18:06 - Constitutional Appears: Non-toxic, No Acute Distress - Head Exam Head Exam: ATRAUMATIC, NORMOCEPHALIC - Eye Exam Eye Exam: EOMI - ENT Exam ENT Exam: Mucous Membranes Moist - Respiratory Exam Respiratory Exam: Clear to Ausculation Bilateral, NORMAL BREATHING PATTERN - Cardiovascular Exam Cardiovascular Exam: +S1, +S2 - GI/Abdominal Exam GI & Abdominal Exam: Soft, Normal Bowel Sounds. absent: Tenderness - Extremities Exam Additional comments: right groin dressing c/d/i no swelling or ecchymosis noted. left leg wrapped in compression dressing, leg warm to touch, intact sensation - Neurological Exam Neurological Exam: Alert, Awake - Psychiatric Exam Psychiatric exam: Normal Affect - Skin Skin Exam: Warm Assessment and Plan - Assessment and Plan (Free Text) Assessment: Left lower extremity DVT POD#2 s/p percutaneous venous thrombectomy of the left leg and POD#3 s/p IVC filter Patient is cleared for discharge from a surgical standpoint with continued anticoagulation and compression of the left lower extremity Follow up with Dr. Carreon in her office in 1-2 weeks Patient to continue Eliquis 10mg PO BID for 7 days followed by 5mg PO BID for remainder of treatment duration continue tylenol as needed for pain HTN continue home medication norvasc 2.5mg and metoprolol succinate 100mg PO daily Gout continue home medication allopurinol 100mg PO daily Insomnia continue xanax 0.25mg HS prn Prophylactic measure patient on Eliquis 10mg PO BID miralax daily Disposition: authorization pending for RODRIGUEZ placement Case discussed with Dr. Julio Stock, covering for Dr. Davis
[2017-08-16 08:14] LABS: BASO % 0.5 % (0.0-2.0); EOS # 0.2 K/uL (0.0-0.7); HEMOGLOBIN 8.9 g/dL (12.0-18.0); LYMPH # 1.4 K/uL (1.0-4.3); LYMPH % 18.5 % (20.0-40.0); MEAN CELL VOLUME 83.7 fL (80.0-94.0); MEAN CORPUSCULAR HEMOGLOBIN 28.1 pg (27.0-31.0); MEAN CORPUSCULAR HGB CONC 33.6 g/dL (33.0-37.0); MEAN PLATELET VOLUME 8.2 fL (7.2-11.7); MONO # 0.9 K/uL (0.0-0.8); RBC 3.18 Mil/uL (4.40-5.90); RED CELL DISTRIBUTION WIDTH 15.2 % (11.5-14.5); WHITE BLOOD COUNT 7.6 K/uL (4.8-10.8)
[2017-08-16 08:35] LABS: ALB/GLOB RATIO 0.9 (1.0-2.1); ALBUMIN 2.4 g/dL (3.5-5.0); ALT/SGPT 24 U/L (21-72); AST/SGOT 26 U/L (17-59); BLOOD UREA NITROGEN 15 mg/dL (9-20); CALCIUM 7.6 mg/dl (8.6-10.4); GFR AFRICAN-AMERICAN > 60; GFR NON-AFRICAN AMERICAN > 60
[2017-08-16] MEDS: POLYETHYLENE GLYCOL 3350 17 GM/Dose PACKET PO SCH (10:10)
[2017-08-16] MEDS: Metoprolol Succinate 100 mg XL Tab PO SCH (10:10)
[2017-08-16 15:55] VITALS: PULSE 64
[2017-08-16 15:56] VITALS: BP 135/77; RESP 20; TEMP 98.3; O2SAT 100
--- NOTE | 2017-08-16 16:43 | CP.PCM.DIS ---
Provider - Provider Date of Admission: 08/10/17 18:41 Attending physician: Julio Stock MD Primary care physician: Ryan Consults: Vascular: Carreon Time Spent in preparation of Discharge (in minutes): 45 Hospital Course - Lab Results Lab Results: Most Recent Lab Values WBC 7.6 K/uL (4.8-10.8) 08/16/17 08:06 RBC 3.18 Mil/uL (4.40-5.90) L 08/16/17 08:06 Hgb 8.9 g/dL (12.0-18.0) L 08/16/17 08:06 Hct 26.6 % (35.0-51.0) L 08/16/17 08:06 MCV 83.7 fL (80.0-94.0) 08/16/17 08:06 MCH 28.1 pg (27.0-31.0) 08/16/17 08:06 MCHC 33.6 g/dL (33.0-37.0) 08/16/17 08:06 RDW 15.2 % (11.5-14.5) H 08/16/17 08:06 Plt Count 252 K/uL (130-400) 08/16/17 08:06 MPV 8.2 fL (7.2-11.7) 08/16/17 08:06 Neut % (Auto) 66.0 % (50.0-75.0) 08/16/17 08:06 Lymph % (Auto) 18.5 % (20.0-40.0) L 08/16/17 08:06 [place] % (Auto) 12.0 % (0.0-10.0) H 08/16/17 08:06 Eos % (Auto) 3.0 % (0.0-4.0) 08/16/17 08:06 Baso % (Auto) 0.5 % (0.0-2.0) 08/16/17 08:06 Neut # (Auto) 5.0 K/uL (1.8-7.0) 08/16/17 08:06 Lymph # (Auto) 1.4 K/uL (1.0-4.3) 08/16/17 08:06 [place] # (Auto) 0.9 K/uL (0.0-0.8) H 08/16/17 08:06 Eos # (Auto) 0.2 K/uL (0.0-0.7) 08/16/17 08:06 Baso # (Auto) 0.0 K/uL (0.0-0.2) 08/16/17 08:06 PT 11.3 SECONDS (9.7-12.2) 08/10/17 18:06 INR 1.0 08/10/17 18:06 APTT 40 SECONDS (21-34) H 08/10/17 18:06 D-Dimer, Quantitative 5403 ng/mlDDU (0-243) H 08/10/17 18:06 Sodium 138 mmol/L (132-148) 08/16/17 08:06 Potassium 3.8 mmol/L (3.6-5.2) 08/16/17 08:06 Chloride 108 mmol/L (98-107) H 08/16/17 08:06 Carbon Dioxide 22 mmol/L (22-30) 08/16/17 08:06 Anion Gap 11 (10-20) 08/16/17 08:06 BUN 15 mg/dL (9-20) 08/16/17 08:06 Creatinine 1.0 mg/dL (0.8-1.5) 08/16/17 08:06 Est GFR ( Amer) > 60 08/16/17 08:06 Est GFR (Non-Af Amer) > 60 08/16/17 08:06 Random Glucose 88 mg/dL (75-110) 08/16/17 08:06 Calcium 7.6 mg/dl (8.6-10.4) L 08/16/17 08:06 Total Bilirubin 0.3 mg/dL (0.2-1.3) 08/16/17 08:06 AST 26 U/L (17-59) 08/16/17 08:06 ALT 24 U/L (21-72) 08/16/17 08:06 Alkaline Phosphatase 49 U/L (38-126) 08/16/17 08:06 Total Protein 5.1 g/dL (6.3-8.3) L 08/16/17 08:06 Albumin 2.4 g/dL (3.5-5.0) L 08/16/17 08:06 Globulin 2.7 gm/dL (2.2-3.9) 08/16/17 08:06 Albumin/Globulin Ratio 0.9 (1.0-2.1) L 08/16/17 08:06 Urine Color Yellow (YELLOW) 08/10/17 18:29 Urine Clarity Clear (Clear) 08/10/17 18:29 Urine pH 5.0 (5.0-8.0) 08/10/17 18:29 Ur Specific [place] 1.016 (1.003-1.030) 08/10/17 18:29 Urine Protein Negative mg/dL (NEGATIVE) 08/10/17 18:29 Urine Glucose (UA) Normal mg/dL (Normal) 08/10/17 18: Urine Ketones Negative mg/dL (NEGATIVE) 08/10/17 18: Urine Blood 1+ (NEGATIVE) H 08/10/17 18:29 Urine Nitrate Negative (NEGATIVE) 08/10/17 18:29 Urine Bilirubin Negative (NEGATIVE) 08/10/17 18: Urine Urobilinogen Normal mg/dL (0.2-1.0) 08/10/17 18:29 Ur Leukocyte Esterase Neg [place]/uL (Negative) 08/10/17 18:29 Urine WBC (Auto) 1 /hpf (0-5) 08/10/17 18:29 Urine RBC (Auto) 6 /hpf (0-3) H 08/10/17 18:29 - Hospital Course Hospital Course: Patient is an 82 y/o male who lives independently who presented to ED 08/10/17 complaining of left lower extremity swelling x 1 week, referred by his primary care provider. Patient denies any lower extremity pain, numbness or tingling, chest pain, SOB, or abdominal pain. Patient reports some weight loss recently. Patient denies any recent travel, prolonged periods of sitting, recent illnesses , surgeries, hospitalizations, and is very mobile with the assistance of a cane , denies history of DVT's CAD, stroke, or falls. No history of clots in family. Patient does not take any blood thinners at home. Patient tolerated surgery without any complications. Instructed to continue eliquis 10mg for an additional 7 days then to switch to Eliquis 5mg BID for 3 months. He was also instructed to follow up with Dr. Carreon in the office. He was instructed to follow up with his primary care doctor in one weeks time. Discharge Exam - Head Exam Head Exam: ATRAUMATIC, NORMOCEPHALIC - Eye Exam Eye Exam: EOMI, Normal appearance, PERRL Pupil Exam: NORMAL ACCOMODATION, PERRL - GI/Abdominal Exam GI & Abdominal Exam: Normal Bowel Sounds - Neurological Exam Neurological exam: Alert, CN II-XII Intact, Normal Gait, Oriented x3, Reflexes Normal - Psychiatric Exam Psychiatric exam: Normal Affect, Normal Mood - Skin Skin Exam: Dry, Intact, Normal Color, Warm Discharge Plan - Discharge Medications Prescriptions: Apixaban [Eliquis] 5 mg PO BID 30 Days tablet Apixaban [Eliquis] 10 mg PO BID 7 Days tab - Follow Up Plan Condition: STABLE Disposition: HOME/ ROUTINE Instructions: Atrial Fibrillation (DC), Deep Vein Thrombosis (Blood Clots in the Legs) (DC), Apixaban, Vena Cava Filter Placement Additional Instructions: Please take eliquis 10 mg twice a day for 7 more days. After the 7 days please take eliquis 5 mg twice daily for 3 months Please follow up with Dr. Carreon in her office in 7-10 days. Please call to make an appointment. The office information is attached Please follow up in our clinic in 7-10 days. Please call to make an appointment. I have attached the clinics information. Please return to the ED if symptoms worsen. Referrals: [facility] [Outside] Sadie Carreon MD [Staff Provider] - Howard Davis MD [Staff Provider] -
--- NOTE | 2017-08-17 06:59 | PN ---
DATE: 08/14/2017 SUBJECTIVE: The patient is seen today, 08/14/2017. He is not in any cardiopulmonary distress. PHYSICAL EXAMINATION: VITAL SIGNS: Blood pressure 132/77, temperature 99.3, respiratory rate 20, and pulse 73. HEENT: Pupils equal and reactive to light. Normal appearing mucosa of the conjunctivae, oropharynx, and nasal membrane mucosa. NECK: Supple. No JVD. No carotid bruits. No lymph node. No thyromegaly. CHEST AND LUNGS: Bilateral symmetrical expansion. Good air exchange. No rales. No rhonchi. CARDIOVASCULAR SYSTEM: PMI not localized. S1 and S2. No additional sounds. ABDOMEN: Normoactive bowel sounds. No tenderness. No organomegaly. No masses. EXTREMITIES: No cyanosis. No clubbing. No edema. SERVICE DESK LEAD: Alert, awake, and oriented x2. No neurological deficit could be appreciated. ASSESSMENT: 1. 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 2. Hypertension. 3. Osteoarthritis. PLAN: We will start the patient into Eliquis and plan for discharge to rehabilitation if it is feasible. Howard Davis MD
== END 2017-08-16 18:47 | disposition home or self-care (01) | DRG 271 ==
LOC: C.ER 15:14 → C.9E 18:41 → C.6T 19:23
PROVIDERS: ADMIT Family Medicine; ATTEND Family Medicine
PROC: 06H03DZ Insertion of Intraluminal Device into Inferior Vena Cava, Percutaneous Approach (ICD-10-PCS; 2017-08-12)
PROC: 3E03317 Introduction of Other Thrombolytic into Peripheral Vein, Percutaneous Approach (ICD-10-PCS; principal; 2017-08-13)
PROC: 06CD3ZZ Extirpation of Matter from Left Common Iliac Vein, Percutaneous Approach (ICD-10-PCS; 2017-08-13)
PROC: 067D3ZZ Dilation of Left Common Iliac Vein, Percutaneous Approach (ICD-10-PCS; 2017-08-13)
PROC: 067C3ZZ Dilation of Right Common Iliac Vein, Percutaneous Approach (ICD-10-PCS; 2017-08-13)
DX: I82.412 Acute embolism and thrombosis of left femoral vein (principal); I87.1 Compression of vein; M10.9 Gout, unspecified; N40.0 Benign prostatic hyperplasia without lower urinary tract symptoms; Z79.01 Long term (current) use of anticoagulants; I48.91 Unspecified atrial fibrillation; I10 Essential (primary) hypertension; G47.00 Insomnia, unspecified; I82.422 Acute embolism and thrombosis of left iliac vein; Z68.21 Body mass index [BMI] 21.0-21.9, adult

== ENCOUNTER 2018-02-23 14:43 | Inpatient (IN) | payer MEDICARE ==
[2018-02-23 14:44] VITALS: BMI 20.9
--- NOTE | 2018-02-23 15:17 | C.PDOC ---
History Of Present Illness 82 y/o male, w/PMhx of blood clots, present to the ER complaining of diffuse swelling in his right leg which has been present since last night. Patient states that he was taking Eliquis for the past 6 months. However, his PMD discontinued his medications 2 weeks ago. Patient reports that he has history of peripheral vascular disease and he had vascular stents placed in his right leg. Denies having fever, chills, CP, and SOB. Time Seen by Provider: 02/23/18 15:02 Chief Complaint (Nursing): Lower Extremity Problem/Injury History Per: Patient History/Exam Limitations: no limitations Onset/Duration Of Symptoms: Days Current Symptoms Are (Timing): Still Present Severity: Moderate Past Medical History Reviewed: Historical Data, Nursing Documentation, Vital Signs Vital Signs: Last Vital Signs Temp 97.8 F 02/23/18 14:55 Pulse 75 02/23/18 14:55 Resp 18 02/23/18 14:55 BP 167/96 H 02/23/18 14:55 Pulse Ox 100 02/23/18 14:55 - Medical History PMH: Arthritis, HTN Denies: Chronic Kidney Disease, Seizures, Sexually Transmitted Disease Surgical History: Other Surgeries: Hx of surgeries - [facility] Procedures DILATION OF LEFT COMMON ILIAC VEIN, PERCUTANEOUS APPROACH (08/10/17) DILATION OF RIGHT COMMON ILIAC VEIN, PERCUTANEOUS APPROACH (08/10/17) DRAINAGE OF PANCREAS, PERCUTANEOUS APPROACH, DIAGNOSTIC (09/23/16) EXCISION OF LOWER ESOPHAGUS, ENDO, DIAGN (09/23/16) EXCISION OF MIDDLE ESOPHAGUS, ENDO, DIAGN (09/23/16) EXCISION OF STOMACH, ENDO, DIAGN (09/23/16) EXTIRPATION OF MATTER FROM L COM ILIAC VEIN, PERC APPROACH (08/10/17) INSERTION OF INTRALUM DEV INTO INF VENA CAVA, PERC APPROACH (08/10/17) INSPECTION OF UPPER INTESTINAL TRACT, ENDO (09/23/16) INTRODUCE OTH THROMBOLYTIC IN PERIPH VEIN, PERC (08/10/17) ULTRASONOGRAPHY OF GASTROINTESTINAL TRACT (09/23/16) Family History: States: No Known Family Hx - Social History Hx Alcohol Use: No Hx Substance Use: No - Immunization History Hx Tetanus Toxoid Vaccination: No Hx Influenza Vaccination: Yes Hx Pneumococcal Vaccination: Yes Review Of Systems Except As Marked, All Systems Reviewed And Found Negative. Constitutional: Negative for: Fever, Chills Cardiovascular: Negative for: Chest Pain Respiratory: Negative for: Shortness of Breath Skin: Positive for: Other (right leg swelling) Physical Exam - Physical Exam Appears: Non-toxic, No Acute Distress Skin: Normal Color, Warm, Dry Head: Atraumatic, Normacephalic Eye(s): bilateral: Normal Inspection Nose: Normal Oral Mucosa: Moist Neck: Supple Chest: Symmetrical Cardiovascular: Rhythm Regular Respiratory: Normal Breath Sounds, No Rales, No Rhonchi, No Wheezing Gastrointestinal/Abdominal: Normal Exam, Soft, No Tenderness, No Guarding, No Rebound Extremity: Normal ROM, Swelling (swelling from above the left knee to the left foot) Pulses: Left Dorsalis Pedis: Normal, Right Dorsalis Pedis: Decreased Neurological/Psych: Oriented x3, Normal Speech ED Course And Treatment - Laboratory Results Result Diagrams: 02/23/18 15:36 02/23/18 15:36 Lab Interpretation: No Acute Changes O2 Sat by Pulse Oximetry: 100 (RA) Pulse Ox Interpretation: Normal Progress Note: Venous doppler right leg positive for Iliac thrombosis. Reevaluation Time: 16:17 Reassessment Condition: Unchanged - Physician Consult Information Outcome Of Conversation: Case discussed with Dr Davis and Dr Moran. Patient to be started on Lovenox and admitted for vascular evaluation. Medical Decision Making Medical Decision Making: Plan: --Labs --Venous Duplex Scan - RLE Disposition - Disposition Disposition: HOSPITALIZED Disposition Time: 16:20 Condition: STABLE - POA Present On Arrival: Deep Vein Thrombosis / PE - Clinical Impression Clinical Impression: Deep venous thrombosis of right iliac vein - Scribe Statement The provider has reviewed the documentation as recorded by the Ana Stout Provider Attestation: All medical record entries made by the Ana were at my direction and personally dictated by me. I have reviewed the chart and agree that the record accurately reflects my personal performance of the history, physical exam, medical decision making, and the department course for this patient. I have also personally directed, reviewed, and agree with the discharge instructions and disposition.
[2018-02-23 15:41] LABS: BASO # 0.1 K/uL (0.0-0.2); BASO % 0.7 % (0.0-2.0); EOS % 0.5 % (0.0-4.0); HEMOGLOBIN 12.6 g/dL (12.0-18.0); LYMPH # 1.3 K/uL (1.0-4.3); LYMPH % 16.9 % (20.0-40.0); MEAN CELL VOLUME 87.1 fL (80.0-94.0); MEAN CORPUSCULAR HEMOGLOBIN 28.3 pg (27.0-31.0); MEAN CORPUSCULAR HGB CONC 32.5 g/dL (33.0-37.0); MONO # 0.9 K/uL (0.0-0.8); MONO % 11.1 % (0.0-10.0); NEUT # 5.4 K/uL (1.8-7.0); NEUT % 70.8 % (50.0-75.0); NRBC % 0.1 % (0.0-2.0); RBC 4.46 Mil/uL (4.40-5.90); RED CELL DISTRIBUTION WIDTH 15.6 % (11.5-14.5); WHITE BLOOD COUNT 7.7 K/uL (4.8-10.8)
[2018-02-23 15:56] LABS: ALB/GLOB RATIO 1.3 (1.0-2.1); ALT/SGPT 50 U/L (21-72); AST/SGOT 45 U/L (17-59); BLOOD UREA NITROGEN 33 mg/dL (9-20); CALCIUM 9.1 mg/dl (8.6-10.4); GFR NON-AFRICAN AMERICAN 53
[2018-02-23] MEDS ORDERED: Enoxaparin 40 mg Syringe SC STA (16:19)
[2018-02-23] MEDS ORDERED: Enoxaparin 60 mg Syringe ONE (16:54)
[2018-02-23 17:13] VITALS: RESP 20
[2018-02-23 17:37] LABS: INR 1.2; PROTHROMBIN TIME 13.2 SECONDS (9.7-12.2)
--- NOTE | 2018-02-23 17:39 | CP.PCM.HP ---
History of Present Illness - History of Present Illness History of Present Illness: Vascular surgery consult for Dr. 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 This was a similar presentation to his last DVT 6 months ago. Patient denies any pain, trauma, long travel history, chest pain, SOB, coughing, N/V/D or stomach pain. Patient is positive for constipation which he states has been an ongoing issue "for a long time due to old age". IVC filter and L iliac-popliteal thrombolysis , stent was placed 6m ago after the DVT episode in his left leg by Dr. Carreon and subsequently placed on Eliquis by primary, Dr. Davis. Eliquis was discontinued [address] Davis due to no other clotting episodes. Patient denies smoking, illicit drug or alcohol use. Patient is not currently on any anticoagulation. PMH: Mucinous cyst of the pancreas, HTN and DVT of the left leg. Surgeries: IVF filter placmeent 6 months ago Allergies: none Family hx: no blood disorders or cancers reported in the family Medication: Metoprolol Present on Admission - Present on Admission Any Indicators Present on Admission: No History of DVT/PE: Yes - Notes: Notes:: DVT of his left leg 6 months ago Review of Systems - Review of Systems Review of Systems: ROS as per HPI Past Patient History - Infectious Disease Hx of Infectious Diseases: None - Past Medical History & Family History Past Medical History?: Yes - Past Social History Smoking Status: Never Smoked Alcohol: None Drugs: Denies - CARDIAC Hx Hypertension: Yes - PULMONARY Hx Tuberculosis: No - NEUROLOGICAL Hx Seizures: No - HEENT Hx HEENT Problems: No - RENAL Hx Chronic Kidney Disease: No - ENDOCRINE/METABOLIC Hx Endocrine Disorders: No - INTEGUMENTARY Hx Dermatological Problems: No - MUSCULOSKELETAL/RHEUMATOLOGICAL Hx Arthritis: Yes - GASTROINTESTINAL Hx Gastrointestinal Disorders: No - GENITOURINARY/GYNECOLOGICAL Hx Sexually Transmitted Disorders: No - PSYCHIATRIC Hx Substance Use: No - SURGICAL HISTORY Hx Surgeries: Yes Other/Comment: endoscopy - ANESTHESIA Hx Anesthesia: Yes Hx Anesthesia Reactions: No Meds Allergies/Adverse Reactions: Allergies Allergy/AdvReac Type Severity Reaction Status Date / Time No Known Allergies Allergy Verified 04/03/18 15:35 Physical Exam - Constitutional Appears: Well, Non-toxic, No Acute Distress - Head Exam Head Exam: ATRAUMATIC, NORMOCEPHALIC - Eye Exam Eye Exam: absent: Conjunctival injection, Scleral icterus - Respiratory Exam Respiratory Exam: Clear to Auscultation Bilateral, NORMAL BREATHING PATTERN. absent: Accessory Muscle Use, Rhonchi, Wheezes, Respiratory Distress - Cardiovascular Exam Cardiovascular Exam: REGULAR RHYTHM, RRR. absent: Rubs - GI/Abdominal Exam GI & Abdominal Exam: Soft. absent: Rebound, Rigid, Tenderness - Exam Exam: NORMAL INSPECTION - Extremities Exam Extremities exam: Positive for: full ROM, pedal edema, pedal pulses present. Negative for: calf tenderness, normal inspection, tenderness Additional comments: +1 pedal edema to the right leg. no pedal edema to the left leg. No warmth, redness or tenderness noted to the right leg. DP and radial pulses palpated b/l. Unable to feel PT pulses. - Back Exam Back exam: NORMAL INSPECTION - Neurological Exam Neurological exam: Alert, Oriented x3 - Psychiatric Exam Psychiatric exam: Normal Mood - Skin Skin Exam: Dry, Intact Additional comments: Leg was normal temperature without cyanosis or pallor. Results - Vital Signs Recent Vital Signs: Last Vital Signs Temp 98.9 F 02/23/18 17:12 Pulse 60 02/23/18 17:12 Resp 20 02/23/18 17:12 BP 142/84 02/23/18 17:12 Pulse Ox 100 02/23/18 17:12 - Labs Result Diagrams: 02/23/18 15:36 02/23/18 15:36 Labs: Laboratory Results - last 24 hr 02/23/18 02/23/18 15:36 15:36 WBC 7.7 RBC 4.46 Hgb 12.6 D Hct 38.9 MCV 87.1 D MCH 28.3 MCHC 32.5 L RDW 15.6 H Plt Count 200 MPV 8.0 Neut % (Auto) 70.8 Lymph % (Auto) 16.9 L [place] % (Auto) 11.1 H Eos % (Auto) 0.5 Baso % (Auto) 0.7 Neut # (Auto) 5.4 Lymph # (Auto) 1.3 [place] # (Auto) 0.9 H Eos # (Auto) 0.0 Baso # (Auto) 0.1 Sodium 142 Potassium 4.8 Chloride 108 H Carbon Dioxide 19 L Anion Gap 19 BUN 33 H Creatinine 1.3 Est GFR ( Amer) > 60 Est GFR (Non-Af Amer) 53 Random Glucose 104 Calcium 9.1 Total Bilirubin 0.7 AST 45 ALT 50 Alkaline Phosphatase 66 Total Protein 7.1 Albumin 4.0 Globulin 3.1 Albumin/Globulin Ratio 1.3 Assessment & Plan - Assessment and Plan (Free Text) Assessment: Mr Riggs is a 82M with a right iliac DVT. Plan: - Will discuss with Dr. Moran for possible treatment options. - Recommend anticoagulation therapy - Continue treatment per various specialities.
--- NOTE | 2018-02-23 17:54 | CP.PCM.CON ---
History of Present Illness - History of Present Illness History of Present Illness: Vascular surgery consult for Dr. 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 This was a similar presentation to his last DVT 6 months ago. Patient denies any pain, trauma, long travel history, chest pain, SOB, coughing, N/V/D or stomach pain. Patient is positive for constipation which he states has been an ongoing issue "for a long time due to old age". IVC filter and L iliac-popliteal thrombolysis , stent was placed 6m ago after the DVT episode in his left leg by Dr. Carreon and subsequently placed on Eliquis by primary, Dr. Davis. Eliquis was discontinued [address] Davis due to no other clotting episodes. Patient denies smoking, illicit drug or alcohol use. Patient is not currently on any anticoagulation. PMH: Mucinous cyst of the pancreas, HTN and DVT of the left leg. Surgeries: IVF filter placmeent 6 months ago Allergies: none Family hx: no blood disorders or cancers reported in the family Medication: Metoprolol Review of Systems - Review of Systems Review of Systems: see HPI Past Patient History - Infectious Disease Hx of Infectious Diseases: None - Past Medical History & Family History Past Medical History?: Yes - Past Social History Smoking Status: Never Smoked Alcohol: None Drugs: Denies - CARDIAC Hx Hypertension: Yes - PULMONARY Hx Tuberculosis: No - NEUROLOGICAL Hx Seizures: No - HEENT Hx HEENT Problems: No - RENAL Hx Chronic Kidney Disease: No - ENDOCRINE/METABOLIC Hx Endocrine Disorders: No - INTEGUMENTARY Hx Dermatological Problems: No - MUSCULOSKELETAL/RHEUMATOLOGICAL Hx Arthritis: Yes - GASTROINTESTINAL Hx Gastrointestinal Disorders: No - GENITOURINARY/GYNECOLOGICAL Hx Sexually Transmitted Disorders: No - PSYCHIATRIC Hx Substance Use: No - SURGICAL HISTORY Hx Surgeries: Yes Other/Comment: endoscopy - ANESTHESIA Hx Anesthesia: Yes Hx Anesthesia Reactions: No Meds Allergies/Adverse Reactions: Allergies Allergy/AdvReac Type Severity Reaction Status Date / Time No Known Allergies Allergy Verified 08/10/17 15:35 Physical Exam - Constitutional Appears: Non-toxic, No Acute Distress - Head Exam Head Exam: ATRAUMATIC, NORMAL INSPECTION, NORMOCEPHALIC - Eye Exam Eye Exam: EOMI, Normal appearance, PERRL Pupil Exam: NORMAL ACCOMODATION, PERRL - Neck Exam Neck exam: Positive for: Normal Inspection - Respiratory Exam Respiratory Exam: NORMAL BREATHING PATTERN - Cardiovascular Exam Cardiovascular Exam: REGULAR RHYTHM - GI/Abdominal Exam GI & Abdominal Exam: Soft. absent: Distended, Tenderness - Exam Exam: NORMAL INSPECTION - Extremities Exam Extremities exam: Positive for: full ROM, pedal edema, pedal pulses present. Negative for: normal inspection, tenderness Additional comments: R LE edema. No mehnaz sign - Back Exam Back exam: NORMAL INSPECTION - Neurological Exam Neurological exam: Alert, CN II-XII Intact, Normal Gait, Oriented x3, Reflexes Normal - Psychiatric Exam Psychiatric exam: Normal Affect, Normal Mood - Skin Skin Exam: Dry, Intact, Normal Color, Warm Results - Vital Signs Recent Vital Signs: Last Vital Signs Temp 98.9 F 02/23/18 17:12 Pulse 60 02/23/18 17:12 Resp 20 02/23/18 17:12 BP 142/84 02/23/18 17:12 Pulse Ox 100 02/23/18 17:12 - Labs Result Diagrams: 02/23/18 15:36 02/23/18 15:36 Labs: Laboratory Results - last 24 hr 02/23/18 02/23/18 02/23/18 15:36 15:36 17:14 WBC 7.7 RBC 4.46 Hgb 12.6 D Hct 38.9 MCV 87.1 D MCH 28.3 MCHC 32.5 L RDW 15.6 H Plt Count 200 MPV 8.0 Neut % (Auto) 70.8 Lymph % (Auto) 16.9 L [place] % (Auto) 11.1 H Eos % (Auto) 0.5 Baso % (Auto) 0.7 Neut # (Auto) 5.4 Lymph # (Auto) 1.3 [place] # (Auto) 0.9 H Eos # (Auto) 0.0 Baso # (Auto) 0.1 PT 13.2 H INR 1.2 APTT 39 H Sodium 142 Potassium 4.8 Chloride 108 H Carbon Dioxide 19 L Anion Gap 19 BUN 33 H Creatinine 1.3 Est GFR ( Amer) > 60 Est GFR (Non-Af Amer) 53 Random Glucose 104 Calcium 9.1 Total Bilirubin 0.7 AST 45 ALT 50 Alkaline Phosphatase 66 Total Protein 7.1 Albumin 4.0 Globulin 3.1 Albumin/Globulin Ratio 1.3 Assessment & Plan - Assessment and Plan (Free Text) Assessment: R iliac DVT w ho L iliac DVT s/p IVC filter and stent/thrombolysis 6 month ago -REcommend anticoagulation therapy WIll DW dr. Moran
[2018-02-23] MEDS: Enoxaparin 60 mg Syringe SC SCH (21:26)
--- NOTE | 2018-02-24 02:07 | HP ---
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 The patient presented to the emergency room with symptoms of swelling of the right lower extremity for the last 2 days. The patient was evaluated and he had a venous Doppler done on the lower extremity that showed extensive DVT of the right lower extremity extending to the right iliac vein. The patient was admitted after starting Lovenox for further management. REVIEW OF SYSTEMS: Other review of systems is negative. ALLERGIES: NO KNOWN ALLERGIES. MEDICATIONS: Reviewed as per MAR. SOCIAL HISTORY: No history of smoking, EtOH or substance abuse. FAMILY HISTORY: Not contributory. PHYSICAL EXAMINATION GENERAL: The patient is in bed comfortable, not in any cardiopulmonary distress. VITAL SIGNS: Blood pressure 142/84, temperature 98.9, respiratory rate 20 and pulse 60. HEENT: Pupils equal and reactive to light. Normal-appearing mucosa of the conjunctivae, oropharynx and nasal membrane mucosa. NECK: Supple. No JVD. No carotid bruit. No lymph node. No thyromegaly. CHEST AND LUNGS: Bilateral symmetrical expansion. Good air exchange. No rales, no rhonchi. CARDIOVASCULAR SYSTEM: PMI not localized. S1, S2. No additional sounds. ABDOMEN: Normoactive bowel sounds. No tenderness. No organomegaly. No masses. EXTREMITIES: There is right lower extremity edema. CENTRAL NERVOUS SYSTEM: Alert, awake, oriented x2. No neurological deficit could be appreciated. ASSESSMENT: Deep venous thrombosis of the right lower extremity, history of mucinous tumor of the pancreas, hypertension, gouty arthritis. PLAN: Lovenox 1 mg/kg every 12 hours. Resume the patient's home medications. Vascular Surgery consult for possible intervention. Howard Davis MD
[2018-02-24] MEDS ORDERED: Sodium Chloride 0.9% 1,000 ML IV SCH (09:15)
[2018-02-24] MEDS: Pantoprazole 40 mg EC Tab PO SCH (10:02)
[2018-02-24] MEDS: Enoxaparin 60 mg Syringe SC SCH ×2 (10:02→21:16)
[2018-02-24] MEDS: Metoprolol Succinate 100 mg XL Tab PO SCH (10:10)
--- NOTE | 2018-02-24 11:52 | VASCLAB ---
Date of service: 02/23/2018 PROCEDURE: Right Lower Extremity Venous Duplex Exam. HISTORY: swelling right leg hx DVT PRIORS: None. TECHNIQUE: Right common femoral, femoral, popliteal and posterior tibial, peroneal and great saphenous veins were evaluated. Flow was assessed with color Doppler, compressibility, assessment of phasic flow and augmentation response. Report prepared by CINDA Morgan, RVT FINDINGS: RIGHT: 1. Common Femoral Vein: 1.1. Compressibility - Fully compressible: Thrombus - None: Flow - Phasic: Augmentation -Normal: Reflux - None. 2. Femoral Vein: 2.1. Compressibility - Fully compressible: Thrombus - None: Flow - Phasic: Augmentation -Normal: Reflux - None. 3. Popliteal Vein: 3.1. Compressibility - Fully compressible: Thrombus - None: Flow - Phasic: Augmentation -Normal: Reflux - None. 4. Posterior Tibial Vein: 4.1. Compressibility - Fully compressible: Thrombus - None: Flow - Phasic: Augmentation -Normal: Reflux - None. 5. Peroneal Vein: 5.1. Compressibility - Fully compressible: Thrombus - None: Flow - Phasic: Augmentation -Normal: Reflux - None. 6. Great Saphenous Vein: 6.1. Compressibility - Fully compressible: Thrombus -None: Flow - Phasic: Augmentation - Normal: Reflux - None. OTHER FINDINGS: Dr. Lin notified about the findings. IMPRESSION: Acute thrombosis of the right external iliac femoral vein with severe reduction of the venous return. 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
[2018-02-24] MEDS ORDERED: Magnesium Hydroxide Susp 30 ml UD PO ONE (13:00)
--- NOTE | 2018-02-24 14:57 | CP.PCM.PN ---
Subjective - Date & Time of Evaluation Date of Evaluation: 02/24/18 Time of Evaluation: 11:45 - Subjective Subjective: Surgery progress note for Dr. Moran 82 y/o male with hx of DVT was seen and examined this morning for swelling of right lower extremity. Swelling has improved and patient states that he wants to be discharged.Denies pain, SOB, CP. Objective - Vital Signs/Intake and Output Vital Signs (last 24 hours): Temp Pulse Resp BP Pulse Ox 98.5 F 54 L 20 135/84 99 02/24/18 08:00 02/24/18 08:00 02/24/18 08:00 02/24/18 08:00 02/24/18 08:00 Intake and Output: 02/24/18 02/24/18 06:59 18:59 Intake Total 300 170 Balance 300 170 - Medications Medications: Current Medications Allopurinol (Zyloprim) 100 mg PO DAILY [facility] Last Admin: 02/24/18 10:02 Dose: 100 mg Alprazolam (Xanax) 0.25 mg PO HS PRN PRN Reason: Anxiety Stop: 03/02/18 18:14 Last Admin: 02/23/18 21:26 Dose: 0.25 mg Enoxaparin Sodium (Lovenox) 60 mg SC Q12 [facility] Last Admin: 02/24/18 10:02 Dose: 60 mg Metoprolol Succinate (Toprol Xl) 100 mg PO DAILY [facility] Last Admin: 02/24/18 10:10 Dose: Not Given Pantoprazole Sodium (Protonix Ec Tab) 40 mg PO DAILY [facility] Last Admin: 02/24/18 10:02 Dose: 40 mg - Labs Labs: 02/23/18 15:36 02/23/18 15:36 PT 13.2 SECONDS (9.7-12.2) H 02/23/18 17:14 INR 1.2 02/23/18 17:14 APTT 39 SECONDS (21-34) H 02/23/18 17:14 - Constitutional Appears: No Acute Distress - Head Exam Head Exam: ATRAUMATIC, NORMAL INSPECTION, NORMOCEPHALIC - Eye Exam Eye Exam: EOMI, Normal appearance, PERRL Pupil Exam: NORMAL ACCOMODATION, PERRL - ENT Exam ENT Exam: Mucous Membranes Dry, Mucous Membranes Moist - Neck Exam Neck Exam: Normal Inspection - Respiratory Exam Respiratory Exam: NORMAL BREATHING PATTERN. absent: Accessory Muscle Use - Cardiovascular Exam Cardiovascular Exam: REGULAR RHYTHM - GI/Abdominal Exam GI & Abdominal Exam: Soft. absent: Tenderness - Rectal Exam Rectal Exam: NORMAL INSPECTION - Extremities Exam Extremities Exam: Full ROM, Pedal Edema. absent: Tenderness Additional comments: R LE swelling. - Back Exam Back Exam: NORMAL INSPECTION - Neurological Exam Neurological Exam: Alert, Awake, CN II-XII Intact, Normal Gait, Oriented x3 - Psychiatric Exam Psychiatric exam: Normal Affect, Normal Mood - Skin Skin Exam: Dry, Intact, Normal Color, Warm Assessment and Plan - Assessment and Plan (Free Text) Assessment: 82 y/o male with swelling of right leg 2/2/ R iliac DVT Plan: Continue anticoagulation Leg raise Continue medical management per primary No surgical intervention at this time. We will sign off D/W Dr. Moran
--- NOTE | 2018-02-24 15:51 | CT ---
Date of service: 02/24/2018 PROCEDURE: CT Abdomen and Pelvis with contrast HISTORY: right iliac DVT COMPARISON: None available. TECHNIQUE: Contrast dose: 100 cc Omnipaque 350 Radiation dose: Total exam DLP = 871.98 mGy-cm. This CT exam was performed using one or more of the following dose reduction techniques: Automated exposure control, adjustment of the mA and/or kV according to patient size, and/or use of iterative reconstruction technique. FINDINGS: LOWER THORAX: No visible consolidation, pleural effusion, or pneumothorax. LIVER: Faint region of enhancement within the hepatic dome of unclear significance measuring approximately 6 mm (series 7, image 26). GALLBLADDER AND BILE DUCTS: High-density material within the gallbladder may reflect sludge or layering gallstones. PANCREAS: Several low-density pancreatic lesions appear cystic, largest at the level of the pancreatic head. SPLEEN: Unremarkable. ADRENALS: Bilateral adrenal gland hypertrophy. KIDNEYS AND URETERS: Atrophic right kidney. Indeterminate high attenuation exophytic right upper pole renal lesion, possibly hyperdense or proteinaceous cyst. Additional too small to characterize bilateral renal hypodensities, statistically likely cysts. Lobulated left renal contour. The kidneys enhance symmetrically. No hydronephrosis or obstructing calculus identified. VASCULATURE: IVC filter. Atherosclerotic calcifications of the aorta. No aortic aneurysm. Stent from the IVC extending into the left iliac vein. Please note a true venous phase was not obtained which precluded adequate evaluation. Suspect thrombophlebitis on the right with inflammatory changes noted at the level the proximal superficial femoral vein and extending to surround the superficial femoral artery. BOWEL: Stomach is nondistended. Lack of oral contrast limits evaluation for bowel pathology. Bowel loops appear within normal limits of caliber without evidence of obstruction. APPENDIX: No secondary signs of acute appendicitis. PERITONEUM: No significant free fluid. No definite free air. LYMPH NODES: No bulky adenopathy identified. BLADDER: Thick-walled urinary bladder, out of proportion to under distension. REPRODUCTIVE: Heterogeneous enlarged prostate gland. BONES: Degenerative changes. OTHER FINDINGS: None. IMPRESSION: IVC filter. Stent from the IVC extending into the left iliac vein. Please note a true venous phase was not obtained which precluded adequate evaluation for thrombus. Suspect thrombophlebitis on the right with inflammatory changes noted at the level the proximal superficial femoral vein and extending to surround the superficial femoral artery. Multiple fluid density pancreatic lesions. Differential diagnosis includes small cystic neoplasm versus sequela of prior pancreatitis (dilated side duct radicles or tiny pseudocyst). Faint region of enhancement within the hepatic dome of unclear significance measuring approximately 6 mm. This finding is of unclear significance and attention on follow-up imaging may be considered. Atrophic right kidney. High attenuation exophytic right upper pole lesion, indeterminate. Additional too small to characterize renal hypodensities, statistically likely cysts. Suggest renal ultrasound for further evaluation. High-density material within the gallbladder may reflect sludge or layering gallstones. Thick-walled urinary bladder, out of proportion to under distension. Recommend correlation with urinalysis. Heterogeneous enlarged prostate gland. Recommend correlation with PSA. Additional findings as above.
[2018-02-24] MEDS: POLYETHYLENE GLYCOL 3350 17 GM/Dose PACKET PO SCH (18:16)
--- NOTE | 2018-02-24 22:48 | PN ---
DATE: 02/24/2018 DAILY PROGRESS NOTE SUBJECTIVE: The patient is seen on today, 02/24/2018. He is not in any cardiopulmonary distress. The patient had a vascular surgery consultation done by Dr. Moran, and no intervention was advised by Vascular Surgery. PHYSICAL EXAMINATION: VITAL SIGNS: Blood pressure 137/71, temperature 98, respiratory rate 20, and pulse 60. HEENT: Pupils equal and reactive to light. Normal-appearing mucosa of the conjunctivae, oropharynx, and nasal membrane mucosa. NECK: Supple. No JVD. No carotid bruit. No lymph node. No thyromegaly. CHEST AND LUNGS: Bilateral symmetrical expansion. Good air exchange. No rales. No rhonchi. CARDIOVASCULAR SYSTEM: PMI not localized. S1 and S2. No additional sounds. ABDOMEN: Normoactive bowel sounds. No tenderness. No organomegaly. No masses. EXTREMITIES: No cyanosis, no clubbing. There is edema of the right lower extremity compared to the left. ASSESSMENT: 1. Acute deep vein thrombosis in the right lower extremity. 2. History of mucinous tumor of the pancreas. 3. Hypertension. 4. Gouty arthritis. PLAN: We will continue the Lovenox and switch to Eliquis and discharge the patient on Eliquis 5 mg twice a day and current medications. Howard Davis MD
[2018-02-25 08:06] VITALS: BP 134/86; PULSE 98; TEMP 98.9; O2SAT 100
[2018-02-25] MEDS: Metoprolol Succinate 100 mg XL Tab PO SCH (09:50)
[2018-02-25] MEDS: Enoxaparin 60 mg Syringe SC SCH (09:50)
[2018-02-25] MEDS: Pantoprazole 40 mg EC Tab PO SCH (09:50)
[2018-02-25] MEDS: POLYETHYLENE GLYCOL 3350 17 GM/Dose PACKET PO SCH (09:50)
--- NOTE | 2018-02-25 17:50 | CP.PCM.DIS ---
<PerezErnestine P - Last Filed: 02/25/18 20:40> Provider - Provider Date of Admission: 02/23/18 16:19 Attending physician: Howard Davis MD Time Spent in preparation of Discharge (in minutes): 35 Diagnosis - Discharge Diagnosis (1) Deep venous thrombosis of lower extremity Status: Acute Hospital Course - Lab Results Lab Results: Most Recent Lab Values WBC 7.7 K/uL (4.8-10.8) 02/23/18 15:36 RBC 4.46 Mil/uL (4.40-5.90) 02/23/18 15:36 Hgb 12.6 g/dL (12.0-18.0) D 02/23/18 15:36 Hct 38.9 % (35.0-51.0) 02/23/18 15:36 MCV 87.1 fL (80.0-94.0) D 02/23/18 15:36 MCH 28.3 pg (27.0-31.0) 02/23/18 15:36 MCHC 32.5 g/dL (33.0-37.0) L 02/23/18 15:36 RDW 15.6 % (11.5-14.5) H 02/23/18 15:36 Plt Count 200 K/uL (130-400) 02/23/18 15:36 MPV 8.0 fL (7.2-11.7) 02/23/18 15:36 Neut % (Auto) 70.8 % (50.0-75.0) 02/23/18 15:36 Lymph % (Auto) 16.9 % (20.0-40.0) L 02/23/18 15:36 Alfalfa % (Auto) 11.1 % (0.0-10.0) H 02/23/18 15:36 Eos % (Auto) 0.5 % (0.0-4.0) 02/23/18 15:36 Baso % (Auto) 0.7 % (0.0-2.0) 02/23/18 15:36 Neut # (Auto) 5.4 K/uL (1.8-7.0) 02/23/18 15:36 Lymph # (Auto) 1.3 K/uL (1.0-4.3) 02/23/18 15:36 Alfalfa # (Auto) 0.9 K/uL (0.0-0.8) H 02/23/18 15:36 Eos # (Auto) 0.0 K/uL (0.0-0.7) 02/23/18 15:36 Baso # (Auto) 0.1 K/uL (0.0-0.2) 02/23/18 15:36 PT 13.2 SECONDS (9.7-12.2) H 02/23/18 17:14 INR 1.2 02/23/18 17:14 APTT 39 SECONDS (21-34) H 02/23/18 17:14 Sodium 142 mmol/L (132-148) 02/23/18 15:36 Potassium 4.8 mmol/L (3.6-5.2) 02/23/18 15:36 Chloride 108 mmol/L (98-107) H 02/23/18 15:36 Carbon Dioxide 19 mmol/L (22-30) L 02/23/18 15:36 Anion Gap 19 (10-20) 02/23/18 15:36 BUN 33 mg/dL (9-20) H 02/23/18 15:36 Creatinine 1.3 mg/dL (0.8-1.5) 02/23/18 15:36 Est GFR ( Amer) > 60 02/23/18 15:36 Est GFR (Non-Af Amer) 53 02/23/18 15:36 Random Glucose 104 mg/dL (75-110) 02/23/18 15:36 Calcium 9.1 mg/dl (8.6-10.4) 02/23/18 15:36 Total Bilirubin 0.7 mg/dL (0.2-1.3) 02/23/18 15:36 AST 45 U/L (17-59) 02/23/18 15:36 ALT 50 U/L (21-72) 02/23/18 15:36 Alkaline Phosphatase 66 U/L (38-126) 02/23/18 15:36 Total Protein 7.1 g/dL (6.3-8.3) 02/23/18 15:36 Albumin 4.0 g/dL (3.5-5.0) 02/23/18 15:36 Globulin 3.1 gm/dL (2.2-3.9) 02/23/18 15:36 Albumin/Globulin Ratio 1.3 (1.0-2.1) 02/23/18 15:36 - Hospital Course Hospital Course: On admission: 82 y/o male, w/PMhx of blood clots, present to the ER complaining of diffuse swelling in his right leg which has been present since last night. Patient states that he was taking Eliquis for the past 6 months. However, his PMD discontinued his medications 2 weeks ago. Patient reports that he has history of peripheral vascular disease and he had vascular stents placed in his right leg. Denies having fever, chills, CP, and SOB. Hospital Course: Patient was admitted with swelling of his right leg. 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 Patient treated with lovenox [address] abdomen showed stent from IVC extending into the left iliac vein. Suspect thrombophlebitis on right with inflammatory changes noted at the level of the proximal superficial femoral vein extending to surround the superficial femoral artery. Multiple densities of pancreatic lesions are seen, differential diagnosis includes small cystic neoplasm versus sequela of prior pancreatitis (dilated side duct radicles or tiny pseudocyst). Faint region of enhancement within the hepatic dome of unclear significance measuring approximately 6 mm. This finding is of unclear significance and attention on follow-up imagery may be considered. Atrophic right kidney. High attenuation exophytic right upper pole lesion, indeterminate. Additional too small to characterize renal hypodensities, statistically likely cysts. Suggest renal ultrasound for further evaluation. High-density material within the gallbladder may reflect sludge or laying gallstone. Thick-walled urinary bladder out of proportion to under distension. Recommend correlation with urinalysis. Heterogeneous enlarged prostate gland. Recommend correlation with PSA. He had vascular surgery consulted, Dr. Moran recommended no surgical interventions, and continue anticoagulation treatment. Physical therapist recommended discharge to home. Patient is felling well, denies chest pain, extremity pain, and shortness of breath. He is discharged to home with Eliquis 5mg BID. Please note this is a brief summary of hospital course, refer to hospital notes for more full reports on patient hospitalization. Discharge instructions: Patient is stable for discharge as per Dr. Davis. Patient is discharged with the following prescriptions: Eliquis 5mg by mouth twice daily. You are to follow up with your primary care physician within one week of discharge. Return to the emergency room if you experience chest pain, shortness of breath, and any new or worsening symptoms. Discharge Exam - Head Exam Head Exam: ATRAUMATIC, NORMAL INSPECTION, NORMOCEPHALIC - Eye Exam Eye Exam: EOMI, Normal appearance - ENT Exam ENT Exam: Mucous Membranes Moist - Neck Exam Neck exam: Full Rom - Respiratory Exam Respiratory Exam: Clear to PA & Lateral, NORMAL BREATHING PATTERN. absent: Rales, Rhonchi, Wheezes - Cardiovascular Exam Cardiovascular Exam: REGULAR RHYTHM, +S1, +S2 - GI/Abdominal Exam GI & Abdominal Exam: Normal Bowel Sounds, Soft. absent: Tenderness - Extremities Exam Extremities exam: full ROM, pedal edema (RLE non-pitting edema from foot to proximal tibia. ) Additional comments: Non-tender to palpation. Normal capillary refill. RLE dorsalis pedis pulse diminished. - Neurological Exam Neurological exam: Alert, CN II-XII Intact, Oriented x3 - Psychiatric Exam Psychiatric exam: Normal Affect, Normal Mood - Skin Skin Exam: Dry, Normal Color, Warm Discharge Plan - Discharge Medications Prescriptions: RX: Apixaban [Eliquis] 5 mg PO BID 30 Days tablet - Follow Up Plan Condition: STABLE Disposition: HOME/ ROUTINE Instructions: Deep Vein Thrombosis (Blood Clots in the Legs) (DC), Apixaban Additional Instructions: Patient is stable for discharge as per Dr. Davis. Patient is discharged with the following prescriptions: Eliquis 5mg by mouth twice daily. You are to follow up with your primary care physician within one week of disch arge. Return to the emergency room if you experience chest pain, shortness of breath, and any new or worsening symptoms. Referrals: Howard Davis MD [Staff Provider] - <Jonathan Plascencia - Last Filed: 02/26/18 07:54> Provider - Provider Date of Admission: 02/23/18 16:19 Attending physician: Howard Davis MD Hospital Course - Lab Results Lab Results: Most Recent Lab Values WBC 7.7 K/uL (4.8-10.8) 02/23/18 15:36 RBC 4.46 Mil/uL (4.40-5.90) 02/23/18 15:36 Hgb 12.6 g/dL (12.0-18.0) D 02/23/18 15:36 Hct 38.9 % (35.0-51.0) 02/23/18 15:36 MCV 87.1 fL (80.0-94.0) D 02/23/18 15:36 MCH 28.3 pg (27.0-31.0) 02/23/18 15:36 MCHC 32.5 g/dL (33.0-37.0) L 02/23/18 15:36 RDW 15.6 % (11.5-14.5) H 02/23/18 15:36 Plt Count 200 K/uL (130-400) 02/23/18 15:36 MPV 8.0 fL (7.2-11.7) 02/23/18 15:36 Neut % (Auto) 70.8 % (50.0-75.0) 02/23/18 15:36 Lymph % (Auto) 16.9 % (20.0-40.0) L 02/23/18 15:36 Alfalfa % (Auto) 11.1 % (0.0-10.0) H 02/23/18 15:36 Eos % (Auto) 0.5 % (0.0-4.0) 02/23/18 15:36 Baso % (Auto) 0.7 % (0.0-2.0) 02/23/18 15:36 Neut # (Auto) 5.4 K/uL (1.8-7.0) 02/23/18 15:36 Lymph # (Auto) 1.3 K/uL (1.0-4.3) 02/23/18 15:36 Alfalfa # (Auto) 0.9 K/uL (0.0-0.8) H 02/23/18 15:36 Eos # (Auto) 0.0 K/uL (0.0-0.7) 02/23/18 15:36 Baso # (Auto) 0.1 K/uL (0.0-0.2) 02/23/18 15:36 PT 13.2 SECONDS (9.7-12.2) H 02/23/18 17:14 INR 1.2 02/23/18 17:14 APTT 39 SECONDS (21-34) H 02/23/18 17:14 Sodium 142 mmol/L (132-148) 02/23/18 15:36 Potassium 4.8 mmol/L (3.6-5.2) 02/23/18 15:36 Chloride 108 mmol/L (98-107) H 02/23/18 15:36 Carbon Dioxide 19 mmol/L (22-30) L 02/23/18 15:36 Anion Gap 19 (10-20) 02/23/18 15:36 BUN 33 mg/dL (9-20) H 02/23/18 15:36 Creatinine 1.3 mg/dL (0.8-1.5) 02/23/18 15:36 Est GFR ( Amer) > 60 02/23/18 15:36 Est GFR (Non-Af Amer) 53 02/23/18 15:36 Random Glucose 104 mg/dL (75-110) 02/23/18 15:36 Calcium 9.1 mg/dl (8.6-10.4) 02/23/18 15:36 Total Bilirubin 0.7 mg/dL (0.2-1.3) 02/23/18 15:36 AST 45 U/L (17-59) 02/23/18 15:36 ALT 50 U/L (21-72) 02/23/18 15:36 Alkaline Phosphatase 66 U/L (38-126) 02/23/18 15:36 Total Protein 7.1 g/dL (6.3-8.3) 02/23/18 15:36 Albumin 4.0 g/dL (3.5-5.0) 02/23/18 15:36 Globulin 3.1 gm/dL (2.2-3.9) 02/23/18 15:36 Albumin/Globulin Ratio 1.3 (1.0-2.1) 02/23/18 15:36 Attending/Attestation - Attestation I have personally seen and examined this patient.: Yes I have fully participated in the care of the patient.: Yes I have reviewed all pertinent clinical information, including history, physical exam and plan: Yes Notes (Text): Medical attending: Patient was seen and examined by me. Agree with the above note by the resident Hospitalist service is covering today for the patient's primary care physician. The primary care physician had seen just yesterday and per sign out to us explained that the patient was ready to be DC The patient was not in any acute distress. The patient was already dressed up ready to leave the hospital when I came to see the patient The patient had a history of DVT and her Eliquis was stopped recently, however the patient returned to the hospital for another DVT. Patient is well aware that he needs to restart the Eliquis again. He is going to be following up with his primary phsycian as well. Jonathan Plascencia
== END 2018-02-25 13:35 | disposition home or self-care (01) | DRG 300 ==
LOC: C.ER 14:43 → C.9E 16:19 → C.3T 17:25
PROVIDERS: ADMIT Internal Medicine; ATTEND Internal Medicine
DX: I82.423 Acute embolism and thrombosis of iliac vein, bilateral (principal); Z68.1 Body mass index [BMI] 19.9 or less, adult; K59.00 Constipation, unspecified; M10.9 Gout, unspecified; N26.1 Atrophy of kidney (terminal); N40.0 Benign prostatic hyperplasia without lower urinary tract symptoms; Z79.01 Long term (current) use of anticoagulants; I10 Essential (primary) hypertension